=== PATIENT | female | born 1980 | race Caucasian/White ===

== ENCOUNTER → 2018-06-14 13:38 | Outpatient (CLI) | payer OTHER, SELFPAY ==
[2018-06-14 14:58] LABS: Absolute Lymphocyte Count 2.45 X10^3/ul (0.83-4.51); Absolute Neutrophil Count 5.7 X10^3/uL (2.0-7.7); Basophil# 0.04 X10^3/uL; Basophil% 0.4 % (0-1); Eosinophil# 0.18 X10^3/uL; Hematocrit 39.7 % (37-47); Hemoglobin 12.6 g/dl (12.0-15.0); Lymphocyte # 2.45 X10^3/ul (4.0); Lymphocyte % 27.3 % (19-41); Mean Corp Hgb Conc 31.7 g/gl (32-36); Mean Corpuscular Hgb 27.8 pg (27.0-32.0); Mean Corpuscular Volume 87.6 fL (81-99); Mean Platelet Vol. 9.3 fl (6.2-12.0); Monocyte# 0.61 X10^3/uL; Monocyte% 6.8 % (0-10); Neutrophil # 5.66 X10^3/uL (2.7-7.7); Neutrophil % 63.3 % (47-70); Platelet Count 276 K/mm3 (150-450); RBC Distribution Width CV 13.9 % (11.6-14.6); RBC Distribution Width SD 44.3 fl (35.1-43.9); Red Blood Count 4.53 M/mm3 (4.2-5.4)
[2018-06-14 15:00] LABS: POSITIVE COUNT NO; POSITIVE DIFFERENTIAL NO; POSITIVE MORPHOLOGY NO
== END ==
PROVIDERS: Family Provider Family Medicine; PCP Family Medicine; Visit Provider Family Medicine
DX: N92.0 Excessive and frequent menstruation with regular cycle (principal)
CPT/HCPCS: 36415; 85025

== ENCOUNTER 2018-06-14 21:51 | Observation (INO) | payer OTHER, SELFPAY ==
[2018-06-14 21:52] VITALS: BP 165/94; PULSE 113; RESP 15; TEMP 37.6; O2SAT 99; BMI 40.4
--- NOTE | 2018-06-14 22:12 | EKG12_ITS ---
Test Reason : ALLERGIC REACTION Blood Pressure : / mmHG Vent. Rate : 110 BPM Atrial Rate : 110 BPM P-R Int : 164 ms QRS Dur : 080 ms QT Int : 328 ms P-R-T Axes : 057 020 067 degrees QTc Int : 443 ms Sinus tachycardia Otherwise normal ECG Confirmed by JASSON SCOTT, ASTON ([id number]), photograph editor COBY GUERRERO ([id number]) on 06/16/2018 3:16:46 PM Referred By: DR HOLBROOK Confirmed By:ASTON SPAULDING MD
--- NOTE | 2018-06-14 22:20 | RAD_ITS ---
STUDY: X-RAY CHEST REASON FOR EXAM: Female, 38 years old. Allergic reaction, SOB. TECHNIQUE: Portable chest. COMPARISON: 03/29/2014. FINDINGS: The lungs are clear and expanded. There is no demonstrated pleural abnormality. Normal size heart. Normal mediastinum and laith. Normal visualized pulmonary arteries. Normal visualized aortic arch and descending thoracic aorta. Normal visualized thoracic spine. Normal visualized ribs, clavicles, and shoulders. There is no demonstrated abnormality of the visualized soft tissue structures of the upper abdomen. RAD/Chest 1 View (Portable) IMPRESSION: Normal x-ray examination of the chest. Electronically Signed: Reema Quintana MD at 22:39 EST Tel , Service support ,
--- NOTE | 2018-06-14 22:24 | ED.RN ---
NO OLD EKGS IN MUSE
[2018-06-14] MEDS: 0.9% Normal Saline 1,000 ML 250 ML IV (22:25)
[2018-06-14] MEDS: Acetaminophen 325 MG Tablet 650 MG PO (22:29)
[2018-06-14 22:30] VITALS: TEMP 39.1
[2018-06-14 22:33] LABS: Absolute Lymphocyte Count 0.25 X10^3/ul (0.83-4.51); Absolute Neutrophil Count 8.7 X10^3/uL (2.0-7.7); Basophil# 0.01 X10^3/uL; Basophil% 0.1 % (0-1); Eosinophil# 0.11 X10^3/uL; Eosinophils% 1.2 % (0-5); Hematocrit 38.6 % (37-47); Hemoglobin 12.9 g/dl (12.0-15.0); Lymphocyte # 0.25 X10^3/ul (4.0); Lymphocyte % 2.6 % (19-41); Mean Corp Hgb Conc 33.4 g/gl (32-36); Mean Corpuscular Hgb 28.9 pg (27.0-32.0); Mean Corpuscular Volume 86.4 fL (81-99); Mean Platelet Vol. 8.8 fl (6.2-12.0); Monocyte# 0.42 X10^3/uL; Monocyte% 4.4 % (0-10); Neutrophil % 91.5 % (47-70); Platelet Count 236 K/mm3 (150-450); RBC Distribution Width CV 13.9 % (11.6-14.6); RBC Distribution Width SD 42.6 fl (35.1-43.9); Red Blood Count 4.47 M/mm3 (4.2-5.4); White Blood Count 9.5 K/mm3 (4.4-11.0)
[2018-06-14 22:35] LABS: Differential Indicated SCAN CRITERIA MET; POSITIVE COUNT NO; POSITIVE DIFFERENTIAL YES; POSITIVE MORPHOLOGY NO
[2018-06-14] MEDS: Ciprofloxacin 400 MG/200 ML BAG 200 MG IV (22:40)
[2018-06-14 22:41] VITALS: PULSE 108; RESP 26; O2SAT 97
[2018-06-14 22:41] LABS: Partial Thromboplast Time 26.6 Seconds (24.1-36.2); Prothrombin Time (Protime)PT. 12.9 SECONDS (11.7-14.9)
[2018-06-14 22:45] VITALS: O2SAT 97
[2018-06-14 22:50] LABS: ALB/GLOB Ratio 1.2 RATIO (0.9-2.4); AST(SGOT) 18 U/L (15-37); Alanine Aminotransfer ALT/SGPT 31 U/L (13-56); Albumin, Serum 3.7 g/dL (3.2-5.0); Alkaline Phosphatase 50 U/L (45-117); Anion Gap 6 (5-15); BUN 10 mg/dL (7-18); BUN/Creat Ratio 11.5 RATIO (10-20); Chloride 106 mmol/L (98-107); Creatinine, Serum 0.87 mg/dL (0.55-1.02); EST Glomerular Filtration Rate 77 mL/min (>60); Est Glom Filt Rate - Afr Amer 94 mL/min (>60); Estimated Creatinine Clearance 97.99 ml/min; Globulin 3.2 g/dL (2.2-4.2); Glucose 102 mg/dL (74-106); Potassium 3.7 mmol/L (3.5-5.1); Protein, Total 6.9 g/dL (6.4-8.2); Sodium Level 139 mmol/L (136-145)
[2018-06-14 22:57] LABS: Bacteria 0 SEEN /hpf (None Seen); Mucous, Urine 0 SEEN /hpf (<or=2+); Red Blood Cells-Urine 0 SEEN /hpf (0-5); White Blood Cells 0 SEEN /hpf (0-5)
[2018-06-14 22:59] LABS: Differential Comment SCANNED
[2018-06-14 23:06] LABS: Color, Urine Yellow (Yellow); Glucose, Dipstick Normal (Normal); Ketone-Dipstick Negative (Negative); Leukocyte Esterase-Dipstick Negative /ul (Negative); Nitrite-Dipstick Negative (Negative); Occult Blood-Urine 50 /ul (Negative); Protein-Dipstick Negative (Negative); Specific Gravity, Urine 1.015 (1.002-1.030); Urine Bilirubin Dipstick Negative (Negative); Urine Clarity Clear (Clear); Urine Urobilinogen Normal (Normal)
[2018-06-14 23:16] LABS: Squamous Epithelial Cells - UA 0-5 SEEN /hpf (5-10)
[2018-06-14 23:54] LABS: Lactic Acid 1.6 mmol/L (0.4-2.0)
[2018-06-14 23:59] VITALS: BP 136/54; PULSE 131; RESP 26; O2SAT 96
[2018-06-15] VITALS (11 sets, daily range): BP systolic 103–138; BP diastolic 63–75; PULSE 70–124; RESP 16–29; TEMP 36.6–38.9; O2SAT 96–99; BMI 41.6
--- NOTE | 2018-06-15 00:09 | ED.DCSUM_ITS ---
- ER Visit Summary Date of Service: 06/15/18 Chief Complaint: Allergic reaction to Bactrim History of Present Illness: The patient is a 38 F who was seen by her doctor today and treated with Bactrim for UTI. She presents with fever, chills. She states the abdominal pain started shortly after taking the Bactrim. She does complain of shortness of breath but denies cough. She denies headache, photophobia, neck pain or neck stiffness. She believes she has a rash. She also complains of generalized weakness. She does report aching all over. She denies rhinorrhea, congestion or postnasal drainage. She denies sore throat, ear pain or decreased hearing. There is no significant past medical history. She is status post cholecystectomy. Physical Examination: Vital signs noted and remarkable for a blood pressure 155/94 temperature 102.3 heart rate of 113 and respirations 25. Pulse ox 90%. She appears ill. She is flushed. She is very hot to touch. She is not alert but is oriented. Nares patent without discharge. Uvula midline. No erythema or exudate of posterior pharynx. Neck supple. TMs are normal. Heart is rapid and regular without murmur, gallop or rub. Lungs are clear to auscultation with fair movement of air bilaterally. Abdomen minimally tender. There is no CVA tenderness noted. There is a small rash noted left lower quadrant of the abdominal wall. Patient is alert and oriented ?3. Motor is 5 over 5. Sensory is intact. DTRs are symmetric with no clonus or Babinski sign. Cranial 2 through 12 are intact. Cerebellar testing is normal. Patient appears flushed. There is no evidence of cellulitis or abscess. Test Results: White count is 9.5 thousand with 92 segs. Basic metabolic panel is unremarkable. Hepatic profile is unremarkable. Coags are normal. Urine is normal. Chest x-ray was obtained because she was tachypneic and is normal. Emergency Department Course and Treatment: Sepsis protocol was initiated. She received ciprofloxacin because she reports being diagnosed with UTI. Since there is a past history of staph infection/MRSA and there is no evidence of pneumonia or urinary tract infection will also treat with 50 mg/kg of vancomycin. Treatment Plan: IV antibiotics, monitoring in the hospital. Disposition: [facility] Impression: SIRS This note was generated with [employer] ([employer]) dictation software. It may contain incorrect words, spelling, and punctuation that were not noted in review of the chart prior to signing ED Disposition - Plan for ED Patient: Chief Complaint: Allergic Reaction Referrals: Radha Ramon DO [Primary Care Provider] -
--- NOTE | 2018-06-15 00:25 | PCM.HP.STD ---
Problem List (1) SIRS (systemic inflammatory response syndrome) Status: Acute (2) Allergic reaction to Bactrim Status: Acute History of Present Illness Date of Admission: 06/15/18 Chief Complaint: High fever with flushing and abdominal pain The patient is a 38 year old F with history of RA, not on medication came to ER after she had fever with chills, mild abdominal discomfort after she took Bactrim. Prior to that, she complained of burning micturition since Wednesday and she saw her PCP and prescribed Bactrim after possible urine dip test. She took first dose and started feeling fever, chills, shaking, flushing of the face, lethargic and somnolent. She had cough and cold about 2 weeks ago. She denies any current history of UTI and has not taken antibiotic recently.] In the ED, vitals shows 102.3 Fahrenheit, heart rate 130/min, tachypnea RR 26/min with no hypoxia. Empirically, she was given vancomycin and Cipro in ER. She has mild abdominal discomfort, predominantly lower quadrants denies change in recent bowel habit including diarrhea, constipation or GI bleed. Patient had mild nausea but denies vomiting. Past Medical History Allergies cephalexin monohydrate [From Keflex] Allergy (Verified 06/14/18 21:57) Other metronidazole [From Flagyl] Allergy (Verified 06/14/18 21:57) Other Home Medications: Ambulatory Orders Medication Instructions Recorded NK 06/14/18 Smoking Status: Never smoker - *Family History Paternal History Items: No pertinent history Review of Systems Constitutional: Reports: Chills, Fever, Malaise, Weakness, Fatigue HEENT: Denies: Head Aches, Sinus Congestion, Sinus Drainage Cardiovascular: Denies: Chest Pain, Palpitations Respiratory: Reports: Shortness of Breath. Denies: Cough, Sputum production Gastrointestinal: Reports: Nausea. Denies: Abdominal Pain, Vomiting Genitourinary: Reports: Dysuria Musculoskeletal: Reports: Joint Pain. Denies: Joint Tenderness Skin: Reports: Rash. Denies: Wounds Neurological: Denies: Numbness, Tingling, Focal weakness Psychiatric: Denies: Anxiety, Depression, Homicidal Ideations, Suicidal Ideations Hematologic/ Lymphatic: Denies: Easy Bruising, Easy Bleeding VTE Information - Inpt Only VTE Present on Admission: No VTE Mechan Device Prophylaxis: SCD's, None VTE Pharm Prophylaxis ordered?: Yes Patient Problems: Active and Suspected Problems SIRS (systemic inflammatory response syndrome) (Acute) Allergic reaction to Bactrim (Acute) - Physical Exam General: Oriented x3, Cooperative, Lethargic HEENT: Atraumatic, PERRLA, EOMI, Normocephalic Oral: Dry Mucosa Neck: Supple, No JVD, Negative Carotid Bruits, Negative Hepatojugular Reflux Lungs: Clear to auscultation, Normal air movement, No rhonchi, No wheeze Cardiovascular: Regular Rhythm, Normal S1, Normal S2, No murmurs, Tachycardic Abdomen: Bowel Sounds Present, Soft, Non-Distended, Hypoactive Bowel Sounds, Tender - Mild tenderness present in lower quadrants, right lower and left lower quadrants. No rebound tenderness or guarding/rigidity Extremities: No edema, Capillary Refill Less than 3 Seconds Skin: No rashes, No breakdown Musculoskeletal: No Tenderness to Palpation of Joints or Extremities, Arthritic Changes Neurological: Cranial nerves II-XII grossly intact, Deep Tendon Reflexes 2+/4 and Symmetrical, Neuro grossly intact Psych/Mental Status: Normal Affect, Appropriate Vital Signs Temp Pulse Resp BP Pulse Ox 102.3 F H 131 H 26 H 136/54 H 96 06/14/18 22:30 06/14/18 23:59 06/14/18 23:59 06/14/18 23:59 06/14/18 23:59 Oxygen Delivery Method Room Air Weight: 290 lb Body Mass Index (BMI) 40.4 Laboratory Tests Past 24 Hrs 06/14/18 06/14/18 06/14/18 22:20 22:20 22:20 WBC 9.5 RBC 4.47 Hgb 12.9 Hct 38.6 MCV 86.4 MCH 28.9 MCHC 33.4 RDW 13.9 RDW Differential 42.6 Plt Count 236 MPV 8.8 Immature Gran % (Auto) 0.200 Neut % (Auto) 91.5 H Lymph % (Auto) 2.6 L [place] % (Auto) 4.4 Eos % (Auto) 1.2 Baso % (Auto) 0.1 Absolute Neuts (auto) 8.7 H Absolute Lymphs (auto) 0.25 L Total Counted Not Reportable Differential Comment SCANNED PT 12.9 INR 1.0 APTT 26.6 Sodium 139 Potassium 3.7 Chloride 106 Carbon Dioxide 27.0 Anion Gap 6 BUN 10 Creatinine 0.87 Estim Creat Clear Calc 97.99 Est GFR (MDRD) Af Amer 94 Est GFR (MDRD) Non-Af 77 BUN/Creatinine Ratio 11.5 Glucose 102 Lactic Acid Calcium 9.0 Total Bilirubin 0.40 AST 18 ALT 31 Alkaline Phosphatase 50 Total Protein 6.9 Albumin 3.7 Globulin 3.2 Albumin/Globulin Ratio 1.2 Urine Color Urine Clarity Urine pH Ur Specific [place] Urine Protein Urine Glucose (UA) Urine Ketones Urine Occult Blood Urine Nitrite Urine Bilirubin Urine Urobilinogen Ur Leukocyte Esterase Urine RBC Urine WBC Ur Squamous Epith Cells Urine Bacteria Urine Mucus 06/14/18 06/14/18 06/14/18 22:20 22:50 23:08 WBC RBC Hgb Hct MCV MCH MCHC RDW RDW Differential Plt Count MPV Immature Gran % (Auto) Neut % (Auto) Lymph % (Auto) [place] % (Auto) Eos % (Auto) Baso % (Auto) Absolute Neuts (auto) Absolute Lymphs (auto) Total Counted Differential Comment PT INR APTT Sodium Potassium Chloride Carbon Dioxide Anion Gap BUN Creatinine Estim Creat Clear Calc Est GFR (MDRD) Af Amer Est GFR (MDRD) Non-Af BUN/Creatinine Ratio Glucose Lactic Acid Cancelled 1.6 Calcium Total Bilirubin AST ALT Alkaline Phosphatase Total Protein Albumin Globulin Albumin/Globulin Ratio Urine Color Yellow Urine Clarity Clear Urine pH 7.0 Ur Specific [place] 1.015 Urine Protein Negative Urine Glucose (UA) Normal Urine Ketones Negative Urine Occult Blood 50 H Urine Nitrite Negative Urine Bilirubin Negative Urine Urobilinogen Normal Ur Leukocyte Esterase Negative Urine RBC 0 SEEN Urine WBC 0 SEEN Ur Squamous Epith Cells 0-5 SEEN Urine Bacteria 0 SEEN Urine Mucus 0 SEEN Assessment/Plan All Active Problems SIRS (systemic inflammatory response syndrome) (Acute) Allergic reaction to Bactrim (Acute) The patient is a 38 year old F with history of RA, not on medication came to ER after she had fever with chills, mild abdominal discomfort after she took Bactrim. Prior to that, she complained of burning micturition since Wednesday and she saw her PCP and prescribed Bactrim after possible urine dip test. She took first dose and started feeling fever, chills, shaking, flushing of the face, lethargic and somnolent. She had cough and cold about 2 weeks ago. She denies any current history of UTI and has not taken antibiotic recently.] In the ED, vitals shows fever 102.3 Fahrenheit, heart rate 130/min, tachypnea RR 26/min with no hypoxia. Empirically, she was given vancomycin and Cipro in ER. UA and chest x-ray are negative. No leukocytosis. She has mild abdominal discomfort, predominantly lower quadrants denies change in recent bowel habit including diarrhea, constipation or GI bleed. Patient had mild nausea but denies vomiting. 1. SIRS ( fever 102.3 Fahrenheit, heart rate 130/min, tachypnea RR 26/min with no hypoxia), no obvious source but possible abdominal infection or non-infection secondary to Bactrim reaction: [facility] abdomen with oral and IV contrast ordered. Patient did not had history of allergic reaction to contrast in the past. Continue Cipro 400 mg IV every 12 hourly. ID consult. Stool for occult blood, WBC and enteric bacteriology panel ordered. MRSA nasal screen ordered. 2. Possible allergic reaction to Bactrim with flushing and fever: IV Solu-Medrol 60 mg 1 dose given. Started on Benadryl and Pepcid. 3. RA not on medication: In the past she said she could not tolerate methotrexate. Currently controlled. Outpatient workup and management. DVT prophylaxis: Low risk, SCDs ordered. Early ambulation encouraged Code Visit OBSV E&M: 29880 Initial observation care L3
--- NOTE | 2018-06-15 01:10 | CT_ITS ---
STUDY: CT ABDOMEN WITH CONTRAST REASON FOR EXAM: Female, 38 years old. Abdominal pain RADIATION DOSAGE (If Supplied By Facility): CTDIvol = ( 27.31 ) mGy, DLP = ( 2861.00 ) mGycm TECHNIQUE: Transaxial images were obtained post I.V. administration of 100 ml of Isovue 300 contrast, and oral contrast. Sagittal and coronal images were reconstructed. Individualized dose optimization techniques were used for this CT. COMPARISON: 06/13/2012 FINDINGS: The visualized lung bases are unremarkable. The visualized portions of the heart are within normal limits. Normal liver. There has been a cholecystectomy. Normal spleen. Normal pancreas. Normal bilateral adrenal glands. Normal right kidney. Normal left kidney. Normal visualized stomach. Normal small intestine. Normal colon. The appendix is visualized and appears normal. Normal abdominal aorta. Normal inferior vena cava. Normal retroperitoneum. Normal abdominal wall. Normal osseous structures. CT/Abdomen/Pelvis WITH Contrast IMPRESSION: There is been a cholecystectomy. Examination is otherwise unremarkable. Electronically Signed: Surjit Martinez MD at 7:24 EST , Service support ,
[2018-06-15 01:33] LABS: Erythrocyte Sedimentation Rate 19 mm/hr (0-20)
[2018-06-15] MEDS: MethylPREDNISolone 125 MG/2 ML Vial 60 MG IV (01:49)
[2018-06-15] MEDS: 0.9% NaCl Peripheral Flush Adult/Peds IV (01:52)
[2018-06-15 02:24] LABS: CRP 6.16 mg/L (0.0-3.0)
[2018-06-15 02:57] LABS: M R Staph aureus DNA By PCR Negative (Negative); Probe Check PASS; Specimen Processing Control PASS
[2018-06-15] MEDS: 0.9% Normal Saline 1,000 ML 500 ML IV (02:58)
[2018-06-15] MEDS: 0.9% Normal Saline 1,000 ML 150 ML IV ×2 (04:36→14:43)
[2018-06-15 06:10] LABS: Hematocrit 41.4 % (37-47); Hemoglobin 13.2 g/dl (12.0-15.0); Mean Corp Hgb Conc 31.9 g/gl (32-36); Mean Corpuscular Hgb 29.1 pg (27.0-32.0); Mean Corpuscular Volume 91.2 fL (81-99); Mean Platelet Vol. 9.4 fl (6.2-12.0); Platelet Count 240 K/mm3 (150-450); RBC Distribution Width CV 14.4 % (11.6-14.6); RBC Distribution Width SD 47.7 fl (35.1-43.9); Red Blood Count 4.54 M/mm3 (4.2-5.4); White Blood Count 13.7 K/mm3 (4.4-11.0)
[2018-06-15 06:13] LABS: Differential Indicated MANUAL DIFF; POSITIVE COUNT YES; POSITIVE DIFFERENTIAL NO; POSITIVE MORPHOLOGY YES
[2018-06-15 07:25] LABS: Lymphocyte 1 % (19-41); Monocyte 1 % (0-10); Neutrophil-Segmented 98 % (47-70); Total Cells Counted 100 (MANUAL DIFF)
[2018-06-15 07:26] LABS: Platelet Estimate ADEQUATE (ADEQ); Red Cell Morphology NORM C+C NORMAL (NORM C&C)
[2018-06-15 07:27] LABS: Absolute Lymphocyte Count 0.14 X10^3/ul (0.83-4.51); Absolute Neutrophil Count 13.4 X10^3/uL (2.0-7.7)
[2018-06-15] MEDS: Acetaminophen 325 MG Tablet 650 MG PO ×2 (09:42→21:09)
--- NOTE | 2018-06-15 12:39 | PCM.HP.ID ---
Problem List (1) SIRS (systemic inflammatory response syndrome) Status: Acute Reason for Consult: fever Consulted by: Dr. Mathews History of Present Illness: The patient is a 38 year old F with RA, not on immunosuppression, who presented with sudden fever, abd pain, not feeling well. Had several days of dysuria and suprapubic tenderness, saw PCP yesterday, had urine dip done, given rx for bactrim. 2 hours after dose, developed above symptoms with diffuse abd cramping. Doesn't know if she ever took bactrim before. last uti was 15 years ago or so. Came to ED, given iv vanc and cipro. Fever to 102.3. Feeling better this AM, abd pain improved. No rash or itching. Full ROS performed and neg except as noted above. - Medical History Allergies/Adverse Reactions: Allergies cephalexin monohydrate [From Keflex] Allergy (Verified 06/14/18 21:57) Other metronidazole [From Flagyl] Allergy (Verified 06/14/18 21:57) Other sulfamethoxazole [From Bactrim] Allergy (Verified 06/15/18 00:58) Upset Stomach trimethoprim [From Bactrim] Allergy (Verified 06/15/18 00:58) Upset Stomach Home Medications: Ambulatory Orders Medication Instructions Recorded NK 06/14/18 - Social History Tobacco Use: non-smoker Vital Signs Temp Pulse Resp BP Pulse Ox 99.5 F H 84 18 126/73 H 96 06/15/18 08:02 06/15/18 08:02 06/15/18 08:02 06/15/18 08:02 06/15/18 08:02 Oxygen Delivery Method Room Air Weight: 135.4 kg Body Mass Index (BMI) 41.6 Laboratory Tests Past 24 Hrs 06/14/18 06/14/18 06/14/18 22:20 22:20 22:20 WBC 9.5 RBC 4.47 Hgb 12.9 Hct 38.6 MCV 86.4 MCH 28.9 MCHC 33.4 RDW 13.9 RDW Differential 42.6 Plt Count 236 MPV 8.8 Immature Gran % (Auto) 0.200 Neut % (Auto) 91.5 H Lymph % (Auto) 2.6 L [place] % (Auto) 4.4 Eos % (Auto) 1.2 Baso % (Auto) 0.1 Absolute Neuts (auto) 8.7 H Absolute Lymphs (auto) 0.25 L Total Counted Not Reportable Neutrophils % (Manual) Lymphocytes % (Manual) Monocytes % (Manual) Differential Comment SCANNED Diff Path Review Platelet Estimate RBC Morphology ESR PT 12.9 INR 1.0 APTT 26.6 Sodium 139 Potassium 3.7 Chloride 106 Carbon Dioxide 27.0 Anion Gap 6 BUN 10 Creatinine 0.87 Estim Creat Clear Calc 97.99 Est GFR (MDRD) Af Amer 94 Est GFR (MDRD) Non-Af 77 BUN/Creatinine Ratio 11.5 Glucose 102 Lactic Acid Calcium 9.0 Total Bilirubin 0.40 AST 18 ALT 31 Alkaline Phosphatase 50 C-React Prot Ext Range Total Protein 6.9 Albumin 3.7 Globulin 3.2 Albumin/Globulin Ratio 1.2 Urine Color Urine Clarity Urine pH Ur Specific [place] Urine Protein Urine Glucose (UA) Urine Ketones Urine Occult Blood Urine Nitrite Urine Bilirubin Urine Urobilinogen Ur Leukocyte Esterase Urine RBC Urine WBC Ur Squamous Epith Cells Urine Bacteria Urine Mucus MRSA (PCR) 06/14/18 06/14/18 06/14/18 22:20 22:20 22:20 WBC RBC Hgb Hct MCV MCH MCHC RDW RDW Differential Plt Count MPV Immature Gran % (Auto) Neut % (Auto) Lymph % (Auto) [place] % (Auto) Eos % (Auto) Baso % (Auto) Absolute Neuts (auto) Absolute Lymphs (auto) Total Counted Neutrophils % (Manual) Lymphocytes % (Manual) Monocytes % (Manual) Differential Comment Diff Path Review Platelet Estimate RBC Morphology ESR 19 PT INR APTT Sodium Potassium Chloride Carbon Dioxide Anion Gap BUN Creatinine Estim Creat Clear Calc Est GFR (MDRD) Af Amer Est GFR (MDRD) Non-Af BUN/Creatinine Ratio Glucose Lactic Acid Cancelled Calcium Total Bilirubin AST ALT Alkaline Phosphatase C-React Prot Ext Range 6.16 H Total Protein Albumin Globulin Albumin/Globulin Ratio Urine Color Urine Clarity Urine pH Ur Specific [place] Urine Protein Urine Glucose (UA) Urine Ketones Urine Occult Blood Urine Nitrite Urine Bilirubin Urine Urobilinogen Ur Leukocyte Esterase Urine RBC Urine WBC Ur Squamous Epith Cells Urine Bacteria Urine Mucus MRSA (PCR) 06/14/18 06/14/18 06/15/18 22:50 23:08 01:15 WBC RBC Hgb Hct MCV MCH MCHC RDW RDW Differential Plt Count MPV Immature Gran % (Auto) Neut % (Auto) Lymph % (Auto) [place] % (Auto) Eos % (Auto) Baso % (Auto) Absolute Neuts (auto) Absolute Lymphs (auto) Total Counted Neutrophils % (Manual) Lymphocytes % (Manual) Monocytes % (Manual) Differential Comment Diff Path Review Platelet Estimate RBC Morphology ESR PT INR APTT Sodium Potassium Chloride Carbon Dioxide Anion Gap BUN Creatinine Estim Creat Clear Calc Est GFR (MDRD) Af Amer Est GFR (MDRD) Non-Af BUN/Creatinine Ratio Glucose Lactic Acid 1.6 Calcium Total Bilirubin AST ALT Alkaline Phosphatase C-React Prot Ext Range Total Protein Albumin Globulin Albumin/Globulin Ratio Urine Color Yellow Urine Clarity Clear Urine pH 7.0 Ur Specific [place] 1.015 Urine Protein Negative Urine Glucose (UA) Normal Urine Ketones Negative Urine Occult Blood 50 H Urine Nitrite Negative Urine Bilirubin Negative Urine Urobilinogen Normal Ur Leukocyte Esterase Negative Urine RBC 0 SEEN Urine WBC 0 SEEN Ur Squamous Epith Cells 0-5 SEEN Urine Bacteria 0 SEEN Urine Mucus 0 SEEN MRSA (PCR) Negative 06/15/18 05:34 WBC 13.7 H RBC 4.54 Hgb 13.2 Hct 41.4 MCV 91.2 MCH 29.1 MCHC 31.9 L RDW 14.4 RDW Differential 47.7 H Plt Count 240 MPV 9.4 Immature Gran % (Auto) Neut % (Auto) Not Reportable Lymph % (Auto) [place] % (Auto) Eos % (Auto) Baso % (Auto) Absolute Neuts (auto) 13.4 H Absolute Lymphs (auto) 0.14 L Total Counted 100 Neutrophils % (Manual) 98 H Lymphocytes % (Manual) 1 L Monocytes % (Manual) 1 Differential Comment Diff Path Review May foll Platelet Estimate ADEQUATE RBC Morphology NORM C+C ESR PT INR APTT Sodium Potassium Chloride Carbon Dioxide Anion Gap BUN Creatinine Estim Creat Clear Calc Est GFR (MDRD) Af Amer Est GFR (MDRD) Non-Af BUN/Creatinine Ratio Glucose Lactic Acid Calcium Total Bilirubin AST ALT Alkaline Phosphatase C-React Prot Ext Range Total Protein Albumin Globulin Albumin/Globulin Ratio Urine Color Urine Clarity Urine pH Ur Specific [place] Urine Protein Urine Glucose (UA) Urine Ketones Urine Occult Blood Urine Nitrite Urine Bilirubin Urine Urobilinogen Ur Leukocyte Esterase Urine RBC Urine WBC Ur Squamous Epith Cells Urine Bacteria Urine Mucus MRSA (PCR) - Other Studies Radiology: [] reviewed Other Studies: [] Route of nutrition/ use of supplements: [] Nutritional Intake: [] IV Site: [] Arellano Catheter: [] - Physical Exam General: Alert, Oriented x3, Cooperative, No apparent distress HEENT: Atraumatic, PERRLA, EOMI Neck: Supple, No Nodes Lungs: Clear to auscultation, Normal air movement Cardiovascular: Regular rate, Regular Rhythm, No murmurs Abdomen: Soft, Non Tender, Non-Distended Extremities: No edema Skin: No rashes IV Site: Peripheral, without redness Musculoskeletal: No Tenderness to Palpation of Joints or Extremities Neurological: Cranial nerves II-XII grossly intact - Assessment/Plan Antibiotics: [] Assessment/Plan: [] Active and Suspected Problems SIRS (systemic inflammatory response syndrome) (Acute) Allergic reaction to Bactrim (Acute) SIRS - seems consistent with allergic reaction to bactrim complicated uti - UA with 0 wbc, ucx here pending. Had dysuria and suprapubic pain. Cover with po cipro, plan on 5-7 day course. Will follow, thank you, d/w primary team
[2018-06-15 14:39] LABS: Pathologist Review Reviewed
--- NOTE | 2018-06-15 18:09 | PCM.HOSP.N ---
Hospitalist Note Patient was seen briefly today, I also talked with infectious diseases about her care. Factious diseases feels that the patient has an acute cystitis, according to infectious disease notes, they feel that the patient's possible allergic reaction to Bactrim caused her SIRS. Infectious diseases recommended the patient be kept on Cipro, I advanced the patient's diet today to a regular diet, her CAT scan of the abdomen and pelvis did not show any indication for abscess or infection. Chest x-ray was unremarkable on admission. Patient's elevated white blood cell count may be secondary to the administration of IV corticosteroids yesterday.
[2018-06-15] MEDS: Ciprofloxacin 500 MG Tablet PO (21:09)
[2018-06-15] MEDS: 0.9% Normal Saline 1,000 ML 75 ML IV (21:11)
[2018-06-16 04:00] VITALS: BP 116/42; PULSE 76; RESP 16; TEMP 36.7; O2SAT 99
[2018-06-16 06:09] LABS: Absolute Lymphocyte Count 1.45 X10^3/ul (0.83-4.51); Absolute Neutrophil Count 4.8 X10^3/uL (2.0-7.7); Basophil# 0.02 X10^3/uL; Basophil% 0.3 % (0-1); Eosinophil# 0.47 X10^3/uL; Eosinophils% 6.4 % (0-5); Hematocrit 34.5 % (37-47); Hemoglobin 11.1 g/dl (12.0-15.0); Lymphocyte # 1.45 X10^3/ul (4.0); Lymphocyte % 19.8 % (19-41); Mean Corp Hgb Conc 32.2 g/gl (32-36); Mean Corpuscular Hgb 28.5 pg (27.0-32.0); Mean Corpuscular Volume 88.7 fL (81-99); Monocyte% 8.2 % (0-10); Neutrophil # 4.77 X10^3/uL (2.7-7.7); Platelet Count 202 K/mm3 (150-450); RBC Distribution Width SD 44.4 fl (35.1-43.9); Red Blood Count 3.89 M/mm3 (4.2-5.4); White Blood Count 7.3 K/mm3 (4.4-11.0)
[2018-06-16 06:33] LABS: POSITIVE COUNT NO; POSITIVE DIFFERENTIAL NO; POSITIVE MORPHOLOGY NO
--- NOTE | 2018-06-16 08:47 | DCINST_ITS ---
- Discharge Diagnoses Current Active Problems: Current Active and Chronic Problems SIRS (systemic inflammatory response syndrome) (Acute) Allergic reaction to Bactrim (Acute) You will use the following diet at home:: No restrictions Your food should be the consistency of: Regular Your liquids should be the consistency of: Regular/Thin Return to work on:: 06/20/18 May resume sexual activity in: No Restrictions Call your doctor if you observe: Fever of 101 or Higher, Inability to urinate, Shortness of breath, - - trouble swallowing. worsening rash. Allergies/Adverse Reactions: Allergies cephalexin monohydrate [From Keflex] Allergy (Verified 06/14/18 21:57) Other metronidazole [From Flagyl] Allergy (Verified 06/14/18 21:57) Other sulfamethoxazole [From Bactrim] Allergy (Verified 06/15/18 00:58) Upset Stomach trimethoprim [From Bactrim] Allergy (Verified 06/15/18 00:58) Upset Stomach Medications to take at Discharge Ciprofloxacin [Cipro] 500 mg PO BID #10 tablet 06/16/18 The following prescriptions were given: Ciprofloxacin [Cipro] 500 mg PO BID #10 tablet Primary Care Physician: Radha Ramon DO [Primary Care Provider] - Within 2 Weeks Test Results: Test results from this visit will be discussed in further detail at your follow- up appointment, if applicable. Proposed Discharge Date: 06/16/18
--- NOTE | 2018-06-16 08:47 | PCM.WORK.EX ---
Work/School Excuse Work/School Excuse for:: Patient Please excuse this person from:: Work From: 06/15/18 through: 06/20/18
--- NOTE | 2018-06-16 08:48 | PCM.DC.SUM ---
Discharge Date and Diagnosis - Problem List Patient Problems: Active and Suspected Problems SIRS (systemic inflammatory response syndrome) (Acute) Allergic reaction to Bactrim (Acute) Date of Admission: 06/15/18 Date of Discharge: 06/16/18 - Primary Discharge Diagnosis Active and Suspected Problems SIRS (systemic inflammatory response syndrome) (Acute) Allergic reaction to Bactrim (Acute) Hospital Course and Treatment Imaging Results: Clinical Impression(s) from Imaging Studies Chest X-Ray 06/14/18 22:20 IMPRESSION: Normal x-ray examination of the chest. Electronically Signed: Reema Quintana MD at 22:39 EST Tel , Service support , Abdomen/Pelvis CT 06/15/18 01:10 IMPRESSION: There is been a cholecystectomy. Examination is otherwise unremarkable. Electronically Signed: Surjit Martinez MD at 7:24 EST , Service support , Clarence Quezada MD. Infectious disease Operations: None Procedures: None Summary of Care Provided: The patient is a 38 year old F with high fever from home of 102.3 Fahrenheit. Patient also was tachycardic, with heart rate in the 130s and tachypneic with a respiratory rate of 26. Patient states that her symptoms began a couple hours after taking Bactrim. Patient was taking Bactrim for some mild urinary symptoms. Patient denies ever having had Bactrim before. Patient was diagnosed with systemic inflammatory response syndrome. To and patient did have cultures performed that were well as fecal leukocytes. It is feeling. From infectious disease, that this could been just a an acute allergic reaction. Patient did have some eosinophilia that developed but did not meet criteria for DRESS syndrome. Patient was told that this is most likely a drug reaction is really could been a something else, such as infection. Nonetheless, patient is recommended to not take any sulfa medications. Therefore, patient's systemic inflammatory response syndrome is likely due to an acute allergic reaction. She may benefit from seeing an milking machine mechanic given the now patient has 5 medication allergies. [] Patient Problems: Active and Suspected Problems SIRS (systemic inflammatory response syndrome) (Acute) Allergic reaction to Bactrim (Acute) - Physical Exam General: Alert, No apparent distress HEENT: Atraumatic, Normocephalic Oral: Moist Mucosa, No Gingival or Mucosal Lesions/ Ulcerations Neck: No Nodes, Thyroid Normal Size and Texture Lungs: Clear to auscultation, Normal air movement, No rhonchi, No wheeze Cardiovascular: Regular rate, Regular Rhythm, Normal S1, Normal S2, No murmurs Abdomen: Bowel Sounds Present, Soft, Non Tender, Non-Distended, No Hepato-splenomegaly Extremities: No edema, No Calf Tenderness Skin: No rashes Vital Signs Temp Pulse Resp BP Pulse Ox 36.7 C 76 16 116/42 L 99 06/16/18 04:00 06/16/18 04:00 06/16/18 04:00 06/16/18 04:00 06/16/18 04:00 Oxygen Delivery Method Room Air Weight: 135.4 kg Body Mass Index (BMI) 41.6 Intake and Output for Last 24 Hours 06/14/18 06/15/18 06/16/18 23:59 23:59 23:59 Intake Total 4443 / 4443 700 / 700 Output Total 1900 / 1900 Balance 2543 / 2543 700 / 700 Microbiology Past 72 Hours 06/15/18 16:46 Stool Lactoferrin - Final Stool 06/15/18 16:46 Stool Occult Blood (PAOLO) - Final Stool Laboratory Tests Past 24 Hrs 06/15/18 06/16/18 05:34 05:36 WBC 7.3 RBC 3.89 L Hgb 11.1 L Hct 34.5 L MCV 88.7 MCH 28.5 MCHC 32.2 RDW 14.0 RDW Differential 44.4 H Plt Count 202 MPV 9.0 Immature Gran % (Auto) 0.300 Neut % (Auto) 65.0 Lymph % (Auto) 19.8 [place] % (Auto) 8.2 Eos % (Auto) 6.4 H Baso % (Auto) 0.3 Absolute Neuts (auto) 4.8 Absolute Lymphs (auto) 1.45 Total Counted Not Reportable Diff Path Review Reviewed Discharge Diet: No Restrictions Return to work on:: 06/20/18 May resume sexual activity in: No Restrictions Call your doctor if you observe: Fever of 101 or Higher, Inability to urinate, Shortness of breath, - - trouble swallowing. worsening rash. Home Medications: Medications to take at Discharge Ciprofloxacin [Cipro] 500 mg PO BID #10 tablet 06/16/18 Following Prescrptions Were Given to Patient: Ciprofloxacin [Cipro] 500 mg PO BID #10 tablet Primary Care Physician: Radha Ramon DO [Primary Care Provider] - Within 2 Weeks Disposition: Home Minutes spent on discharge:: 32 Patient Condition:: Good Medical Necessity - Tobacco Use Smoking Status: Never smoker Meaningful Use Info Meaningful Use Diagnoses (Choose all that apply): None applicable Code Visit OBSV E&M: 80452 Observation care discharge
--- NOTE | 2018-06-16 08:52 | DS.PCM_ITS ---
Discharge Date and Diagnosis - Problem List Patient Problems: Active and Suspected Problems SIRS (systemic inflammatory response syndrome) (Acute) Allergic reaction to Bactrim (Acute) Date of Admission: 06/15/18 Date of Discharge: 06/16/18 - Primary Discharge Diagnosis Active and Suspected Problems SIRS (systemic inflammatory response syndrome) (Acute) Allergic reaction to Bactrim (Acute) Hospital Course and Treatment Imaging Results: Clinical Impression(s) from Imaging Studies Chest X-Ray 06/14/18 22:20 IMPRESSION: Normal x-ray examination of the chest. Electronically Signed: Reema Quintana MD at 22:39 EST Tel , Service support , Abdomen/Pelvis CT 06/15/18 01:10 IMPRESSION: There is been a cholecystectomy. Examination is otherwise unremarkable. Electronically Signed: Surjit Martinez MD at 7:24 EST , Service support , Clarence Quezada MD. Infectious disease Operations: None Procedures: None Summary of Care Provided: The patient is a 38 year old F with high fever from home of 102.3 Fahrenheit. Patient also was tachycardic, with heart rate in the 130s and tachypneic with a respiratory rate of 26. Patient states that her symptoms began a couple hours after taking Bactrim. Patient was taking Bactrim for some mild urinary symptoms. Patient denies ever having had Bactrim before. Patient was diagnosed with systemic inflammatory response syndrome. To and patient did have cultures performed that were well as fecal leukocytes. It is feeling. From infectious disease, that this could been just a an acute allergic reaction. Patient did have some eosinophilia that developed but did not meet criteria for DRESS syndrome. Patient was told that this is most likely a drug reaction is really could been a something else, such as infection. Nonetheless, patient is recommended to not take any sulfa medications. Therefore, patient's systemic inflammatory response syndrome is likely due to an acute allergic reaction. She may benefit from seeing an wire winding machine tender given the now patient has 5 medication allergies. [] Patient Problems: Active and Suspected Problems SIRS (systemic inflammatory response syndrome) (Acute) Allergic reaction to Bactrim (Acute) - Physical Exam General: Alert, No apparent distress HEENT: Atraumatic, Normocephalic Oral: Moist Mucosa, No Gingival or Mucosal Lesions/ Ulcerations Neck: No Nodes, Thyroid Normal Size and Texture Lungs: Clear to auscultation, Normal air movement, No rhonchi, No wheeze Cardiovascular: Regular rate, Regular Rhythm, Normal S1, Normal S2, No murmurs Abdomen: Bowel Sounds Present, Soft, Non Tender, Non-Distended, No Hepato- splenomegaly Extremities: No edema, No Calf Tenderness Skin: No rashes Vital Signs Temp Pulse Resp BP Pulse Ox 36.7 C 76 16 116/42 L 99 06/16/18 04:00 06/16/18 04:00 06/16/18 04:00 06/16/18 04:00 06/16/18 04:00 Oxygen Delivery Method Room Air Weight: 135.4 kg Body Mass Index (BMI) 41.6 Intake and Output for Last 24 Hours 06/14/18 06/15/18 06/16/18 23:59 23:59 23:59 Intake Total 4443 / 4443 700 / 700 Output Total 1900 / 1900 Balance 2543 / 2543 700 / 700 Microbiology Past 72 Hours 06/15/18 16:46 Stool Lactoferrin - Final Stool 06/15/18 16:46 Stool Occult Blood (PAOLO) - Final Stool Laboratory Tests Past 24 Hrs 06/15/18 06/16/18 05:34 05:36 WBC 7.3 RBC 3.89 L Hgb 11.1 L Hct 34.5 L MCV 88.7 MCH 28.5 MCHC 32.2 RDW 14.0 RDW Differential 44.4 H Plt Count 202 MPV 9.0 Immature Gran % (Auto) 0.300 Neut % (Auto) 65.0 Lymph % (Auto) 19.8 [place] % (Auto) 8.2 Eos % (Auto) 6.4 H Baso % (Auto) 0.3 Absolute Neuts (auto) 4.8 Absolute Lymphs (auto) 1.45 Total Counted Not Reportable Diff Path Review Reviewed Discharge Diet: No Restrictions Return to work on:: 06/20/18 May resume sexual activity in: No Restrictions Call your doctor if you observe: Fever of 101 or Higher, Inability to urinate, Shortness of breath, - - trouble swallowing. worsening rash. Home Medications: Medications to take at Discharge Ciprofloxacin [Cipro] 500 mg PO BID #10 tablet 06/16/18 Following Prescrptions Were Given to Patient: Ciprofloxacin [Cipro] 500 mg PO BID #10 tablet Primary Care Physician: Radha Ramon DO [Primary Care Provider] - Within 2 Weeks Disposition: Home Minutes spent on discharge:: 32 Patient Condition:: Good Medical Necessity - Tobacco Use Smoking Status: Never smoker Meaningful Use Info Meaningful Use Diagnoses (Choose all that apply): None applicable Code Visit OBSV E&M: 32193 Observation care discharge
[2018-06-16] MEDS: Ciprofloxacin 500 MG Tablet PO (09:19)
[2018-06-16 09:24] VITALS: BP 143/100; PULSE 74; RESP 16; TEMP 36.9; O2SAT 98
== END 2018-06-16 09:23 | disposition home or self-care (01) ==
LOC: ED 23:04 → MS3 06-15 00:20
PROVIDERS: Internal Medicine; Admitting Provider Internal Medicine; Emergency Provider Emergency Medicine; Family Provider Family Medicine; PCP Family Medicine
DX: R00.0 Tachycardia, unspecified (principal); R65.10 Systemic inflammatory response syndrome (SIRS) of non-infectious origin without acute organ dysfunction; T37.0X5A Adverse effect of sulfonamides, initial encounter; N39.0 Urinary tract infection, site not specified; M06.9 Rheumatoid arthritis, unspecified
CPT/HCPCS: 36415; 71045; 74177; 80053; 81001; 82274; 83605; 83630; 85025; 85610; 85652; 85730; 86140; 87040; 87086; 87506; 87641; 93005; 96361; 96365; 96366; 96367; 96375; 99218; 99285; J7030; Q9967; A4216; G0378; J0744; J3490

== ENCOUNTER → 2018-12-09 | Outpatient (CLI) | payer OTHER, SELFPAY ==
--- NOTE | 2018-12-09 08:49 | RAD_ITS ---
STUDY: X-RAY - LEFT FOOT CLINICAL: Female, 38 years old. Recent heel pain without trauma. TECHNIQUE: 3 view(s) of the foot. COMPARISON: None. FINDINGS: Osseous alignments are anatomic. There is no acute fracture lucency. There is no cortical step-off. There is no radiopaque soft tissue foreign body. There are well corticated, degenerative plantar and Achilles insertion site spurs involving the calcaneus. RAD/Foot min 3 Views IMPRESSION: No plain film evident acute osseous abnormality. No significant arthritic change. Degenerative calcaneal spurring. Electronically Signed: Jose Sultana MD at 13:04 EDT , Service support ,
--- NOTE | 2018-12-09 08:49 | RAD_ITS ---
STUDY: X-RAY - LEFT ANKLE REASON FOR EXAM: Female, 38 years old. Reason ankle swelling without trauma. TECHNIQUE: 3 view(s) of the ankle. COMPARISON: None. FINDINGS: Osseous alignments appear anatomic. There is no acute fracture lucency or cortical step-off. No significant plain film evident soft tissue swelling. No radiopaque soft tissue foreign body. Minimal multifocal osteoarthritis. Well-corticated, prominent degenerative plantar and Achilles insertion site spurs RAD/Ankle min 3 Views IMPRESSION: No radiographically evident acute osseous abnormality. Calcaneal degenerative spurs. Electronically Signed: Jose Sultana MD at 13:01 EDT , Service support ,
== END | disposition home or self-care (01) ==
LOC: HPRAD 08:41
PROVIDERS: Family Provider Family Medicine; PCP Family Medicine; Referring Provider Family Medicine; Visit Provider Family Medicine
DX: M25.572 Pain in left ankle and joints of left foot (principal); M79.672 Pain in left foot
CPT/HCPCS: 73610; 73630

== ENCOUNTER → 2018-12-27 | Outpatient (CLI) | payer OTHER, SELFPAY ==
--- NOTE | 2018-12-27 08:48 | VDLE_ITS ---
Reason For Study: Varicose veins RIGHT LEFT CFV is compressible, spontaneous, phasic, CFV is compressible, spontaneous, phasic, competent and demonstrates normal competent, and demonstrates normal augmentation. augmentation. FV is compressible, spontaneous, phasic, FV is compressible, spontaneous, phasic, competent and demonstrates normal competent and demonstrates normal augmentation. augmentation. POP V is compressible, spontaneous, phasic, POP V is compressible, spontaneous, phasic, competent and demonstrates normal competent and demonstrates normal augmentation. augmentation. T/P Trunk is compressible. T/P Trunk is compressible. PTV is compressible. PTV is compressible. RT PerV is compressible. LT PerV is compressible. SFJ is INCOMPETENT for greater than 0.5 SFJ is competent. seconds. GSV is INCOMPETENT throughout for greater GSV is INCOMPETENT throughout for greater than 0.5 seconds and measures 0.68 x 0.72 cm. than 0.5 seconds and measures 0.48 x 0.51 cm. SSV is competent. INCOMPETENT electro tech 10 cm above medial malleolus. Thrombus filled varicose veins medial calf. SSV is competent. GSV below knee acute thrombosis. Thrombus filled varicose veins lateral thigh. Thrombus filled varicose veis medial calf. Procedure Exam performed in department. A preliminary report was called and/or faxed to [employer] Interpretation Summary Deep veins of the lower extremities are bilaterally patent and compressible segmentally. There is no evidence of deep vein thrombosis on either side. Valvular competence appears intact within the proximal deep venous systems bilaterally. The right sapheno-femoral junction is incompetent . The left sapheno-femoral junction is competent . The right greater saphenous vein is incompetent and demonstrates acute superficial thrombophlebitis below the knee. The left greater saphenous vein is patent and incompetent. Small saphenous veins are patent and competent bilaterally. An incompetent electro tech vein is noted in the right calf, located 10 centimeters proximal to the right medial malleolus. Acute superficial thrombophlebitis is noted involving superficial varicosities in the right lateral thigh, right medial calf, and left medial calf. Ordering Physician: Radha Ramon Referring Physician: Radha Ramon Performed By: Erika Newberry RVT
== END | disposition home or self-care (01) ==
LOC: CVS 08:45
PROVIDERS: Family Provider Family Medicine; PCP Family Medicine; Referring Provider Family Medicine; Visit Provider Family Medicine
DX: I87.2 Venous insufficiency (chronic) (peripheral) (principal); I83.10 Varicose veins of unspecified lower extremity with inflammation
CPT/HCPCS: 93970

== ENCOUNTER → 2019-03-21 | Outpatient (CLI) | payer OTHER, SELFPAY ==
--- NOTE | 2019-03-21 11:30 | MRI_ITS ---
STUDY: MRI LEFT ANKLE WITHOUT CONTRAST REASON FOR EXAM: Female, 38 years old. Left ankle pain, tarsal tunnel. TECHNIQUE: Standardized fat and water weighted pulse sequences were obtained in all 3 orthogonal planes. COMPARISON: None. FINDINGS: Normal subcutis adipose space. Normal posterior tibialis tendon. Normal flexor digitorum longus tendon. Normal flexor hallucis longus tendon. Normal peroneus longus and brevis tendons. There is a 1.8 x 1.8 x 8.4 cm cystic lesion encasing the extensor digitorum longus muscle and tendon from the distal tibia to the navicular level. The tendon is intact, with no tendinosis or tear. Normal tibialis anterior tendon. Normal extensor hallucis longus tendon. Normal Achilles tendon and teno-osseous insertion. There is thickening of the plantar fascia, with mild edema signal at the origin. There is a moderate-sized plantar calcaneal spur, and moderate plantar calcaneal edema. Findings are consistent with plantar fasciitis. There is no high-grade tear of the plantar fascia. Mild edema in the medial cuneiform bone is consistent with degenerative change. Marrow signal is otherwise normal. Normal plantar calcaneal tubercles. Normal intrinsic muscles of the rearfoot. Intact Lisfranc ligament. Normal distal tibiofibular syndesmotic ligamentous complex. There is thickening of the anterior talofibular ligament, consistent with chronic, healed tear with fibrosis. Normal subtalar ligaments and sinus tarsi. Normal deltoid ligamentous complexes. Normal plantar calcaneonavicular (spring) ligament. Normal tibiotalar articulation. Normal talar dome. Small subtalar joint effusion. Normal talonavicular articulation. Normal calcaneocuboid articulation. Normal navicular-cuneiform articulations. MRI/Lower Ext Joint Only (Routine) IMPRESSION: 1. Plantar fasciitis. 2. An 8.4 cm ganglion cyst around the extensor digitorum longus muscle and tendon. 3. Mild degenerative changes of the medial cuneiform bone. 4. Small subtalar joint effusion. 5. Chronic anterior talofibular ligament tear. Electronically Signed: Reema Quintana MD at 22:14 EDT Tel , Service support ,
== END | disposition home or self-care (01) ==
PROVIDERS: Family Provider Family Medicine; PCP Family Medicine; Referring Provider Podiatrist; Visit Provider Podiatrist
DX: M72.2 Plantar fascial fibromatosis (principal); G57.52 Tarsal tunnel syndrome, left lower limb
CPT/HCPCS: 73721

== ENCOUNTER → 2019-05-09 14:26 | Outpatient (CLI) | payer OTHER, SELFPAY ==
[2019-05-09 16:00] LABS: Absolute Lymphocyte Count 2.14 X10^3/uL (0.83-4.51); Absolute Neutrophil Count 4.9 X10^3/uL (2.0-7.7); Basophil# 0.06 X10^3/uL; Basophil% 0.8 % (0-1); Eosinophil# 0.19 X10^3/uL; Eosinophils% 2.4 % (0-5); Hematocrit 39.2 % (37-47); Hemoglobin 12.3 g/dL (12.0-15.0); Lymphocyte # 2.14 X10^3/ul (4.0); Lymphocyte % 26.9 % (19-41); Mean Corp Hgb Conc 31.4 g/dL (32-36); Mean Corpuscular Hgb 27.2 pg (27.0-32.0); Mean Corpuscular Volume 86.7 fL (81-99); Mean Platelet Vol. 9.5 fl (6.2-12.0); Monocyte# 0.64 X10^3/uL; NRBC Flagged by Analyzer 0 % (0-5); Neutrophil # 4.91 X10^3/uL (2.7-7.7); Neutrophil % 61.5 % (47-70); Platelet Count 271 K/mm3 (150-450); RBC Distribution Width CV 13.6 % (11.6-14.6); RBC Distribution Width SD 42.8 fl (35.1-43.9); Red Blood Count 4.52 M/mm3 (4.2-5.4)
[2019-05-09 16:15] LABS: Anion Gap 8 (5-15); BUN 11 mg/dL (7-18); BUN/Creat Ratio 16.7 RATIO (10-20); Calcium,Total 8.8 mg/dL (8.5-10.1); Chloride 108 mmol/L (98-107); Creatinine, Serum 0.66 mg/dL (0.55-1.02); EST Glomerular Filtration Rate 107 mL/min (>60); Est Glom Filt Rate - Afr Amer 129 mL/min (>60); Glucose 84 mg/dL (74-106); Potassium 3.9 mmol/L (3.5-5.1); Sodium Level 141 mmol/L (136-145)
== END ==
PROVIDERS: Family Provider Family Medicine; PCP Family Medicine; Referring Provider Family Medicine; Visit Provider Family Medicine
DX: Z01.818 Encounter for other preprocedural examination (principal); M79.672 Pain in left foot
CPT/HCPCS: 36415; 80048; 85025

== ENCOUNTER 2019-05-12 05:28 | Day surgery (SDC) | payer OTHER, SELFPAY ==
[2018-06-15 00:48] VITALS: BMI 41.6
--- NOTE | 2019-05-11 15:58 | HP.PCM_ITS ---
Problem List (1) Foot pain, left Status: Chronic Comment: plantar fasciitis (2) Plantar fasciitis of left foot Status: Chronic (3) Tarsal tunnel syndrome of left side Status: Chronic History of Present Illness Date of Admission: 05/12/19 - re examined pt 05/12/19 at 7:15 am Chief Complaint: Pt is known to me from my private office where she has been treated for chronic plantar fasciitis and tarsal tunnel syndrome of the left foot The patient is a 39 year old F has been treated conservatively for plantar fasciitis and tarsal tunnel syndrome including injections, arch supports, stretching, rest, ice, change in shoes, etc. Conservative modalities have failed and pt is interested in surgical intervention. Past Medical History Past Medical History (Chronic Problems): Chronic Problems Foot pain, left (Chronic) plantar fasciitis Plantar fasciitis of left foot (Chronic) Tarsal tunnel syndrome of left side (Chronic) Allergies cephalexin monohydrate [From Keflex] Allergy (Verified 04/28/19 08:27) Other metronidazole [From Flagyl] Allergy (Verified 04/28/19 08:27) Other sulfamethoxazole [From Bactrim] Allergy (Verified 04/28/19 08:27) Upset Stomach trimethoprim [From Bactrim] Allergy (Verified 04/28/19 08:27) Upset Stomach Home Medications: Ambulatory Orders Medication Instructions Recorded NK 04/28/19 Smoking Status: Never smoker Tobacco Use: Non-smoker - *Family History Paternal History Items: No pertinent history Review of Systems Musculoskeletal: Reports: Foot Pain - Severe pain with palpation of medial calcaneal tubercle of left foot. No pain with lateral compression. MRI confirmed thickening of the plantar fascia with edema. No tears. Neurological: Reports: Tingling - Tingling and pain are seen with percussion of the tarsal tunnel left foot. VTE Information - Inpt Only VTE Present on Admission: No Reason prophylaxis not ordered:: Treatment Not Indicated - Pt admitted for outpatient surgical intervention Subjective: Pt presents for outpatient surgical intervention. Objective: Pt presented with pain to left foot. - Physical Exam Extremities: Peripheral Pulses Normal Skin: No breakdown Assessment/Plan All Active Problems SIRS (systemic inflammatory response syndrome) (Acute) Allergic reaction to Bactrim (Acute) Dx: 1.Chronic plantar fasciitis left foot 2. Tarsal Tunnel Syndrome left foot Risks, complications, alternative treatments were discussed with pt in detail. No guarantees were given. All questions were answered. Consent was reviewed, signed, and placed in chart. Pt will report to [facility] for outpatient surgical intervention the morning of Wednesday, May 12, 2019. She will be NWB and already has walking aids. Medication escribed for pain control.
[2019-05-12] VITALS (7 sets, daily range): BP systolic 112–126; BP diastolic 65–99; PULSE 65–74; RESP 16–18; TEMP 36.4–37; O2SAT 94–100; BMI 41.8
[2019-05-12] MEDS: Lactated Ringers 1,000 ML 100 ML IV (06:57)
--- NOTE | 2019-05-12 16:47 | OP.PCM_ITS ---
Problem List (1) Foot pain, left Status: Chronic Comment: plantar fasciitis (2) Plantar fasciitis of left foot Status: Acute (3) Tarsal tunnel syndrome of left side Status: Acute Report of Operation Date of Procedure: 05/12/19 Pre-Operative Diagnosis: Plantar Fasciitis left foot, chronic. Tarsal Tunnel Syndrome, left foot Post-Operative Diagnosis: same Surgery/Procedure Performed:: Endoscopic Plantar Fasciotomy left foot. Tarsal Tunnel Release left foot Description of Surgical Findings:: Varicosities are present within tarsal tunnel Type of Anesthesia:: General Anesthesiologist: Phil Bedoya Specimen's removed: none Drains: none Estimated Blood Loss (mL): 10cc's Description of Procedure: Under mild sedation, the pt was brought into the OR and placed on the operating table in the supine position. A pneumatic thigh tourniquet was placed about the pt's left thigh. Following general anesthesia, the left foot and lower leg were scrubbed and prepped in the usual aseptic manner. The left limb was then elevated to exsanguinate and the thigh tourniquet was inflated to 300mmHg. Attention was then directed to the medial posterior ankle area where approximately 6cm curvilinear incision was made between the Achilles and medial malleolus of the left foot. The incision was deepened through blunt dissection. All superficial bleeding vessels were cauterized and ligated as necessary. One vessel was tied with vicryl suture. Deeper, the flexor retinaculum was then located. It was dissected free from deep soft tissue and a longitudinal incision was made with tenotomy scissors, being careful to protect the deep veins. Then, immediately, there were 3 large tortuous veins noted within the tarsal tunnel. They were lightly dissected from the deep tissue. Area was inspected for further space occupying lesions. None were located. Wound was flushed with copious amounts of NSS. Deep subcutaneous tissues were reapproximated and coapted utilizing 3-0 vicryl. Superficial subcutaneous tissues were reapproximated similarly. Skin was reapproximated and coapted utilizing 3-0 monocryl sutures. Cavalon was utilized and then steri strips were applied to the incision for further strength. Next, attention was directed to the plantar medial left calcaneal tubercle, at the origin of the plantar fascia. A 1.5cm linear longitudinal incision was made which was deepened bluntly with the Ben elevator. This was placed in the incision and directed laterally deep to the plantar fascia, superficial to the fat pad. Next, the cannula and obturator were introduced in a similar manner. The lateral skin tented and another 1.5cm incision was made on the lateral aspect of the heel. The obturator was removed. With the endoscope on the lateral opening, the probe was inserted medially. The area was probed and then the hook knife was inserted medially. Approximately 50% of the plantar fascia was incised from the medial aspect. The felxor digitorum brevis muscle belly was then exposed. The wound was flushed with copious amounts of NSS and all instruments, including the cannula, were removed. The medial and lateral incisions were reapproximated and coapted utilizing 3-0 Prolene sutures. All incisions were dressed with xeroform and covered with a sterile compressive dressing consisting of 4x4's, ABD pad, Kerlix, and an sharyn wrap. The pneumatic thigh tourniquet was released and a prompt hyperemic response was noted to all digits of the left foot. Following a period of post operative monitoring, the patient will be discharged home with written and oral post operative instructions. She is to keep the dressing clean, dry, intact. Remain NWB with crutches or knee walker. Take oral pain medication as directed. Rest, ice, e levate and avoid excessive ambulation. Follow at Dr. Quintanilla's office for all post operative and follow up care. Contact Dr. Quintanilla with any concerns. - Complications none - Admit VTE Documentation VTE Mechan Device Prophylaxis: SCD's VTE Pharm Prophylaxis ordered?: No Reason prophylaxis not ordered:: Treatment Not Indicated
== END 2019-05-12 11:05 | disposition home or self-care (01) ==
LOC: SDC 05:29 → AC 05:30
PROVIDERS: Family Provider Family Medicine; PCP Family Medicine; Referring Provider Podiatrist; Visit Provider Podiatrist
PROC: (CPT 29893; principal; 2019-05-12 07:00)
DX: M72.2 Plantar fascial fibromatosis (principal); G57.52 Tarsal tunnel syndrome, left lower limb; M41.9 Scoliosis, unspecified; M06.9 Rheumatoid arthritis, unspecified
CPT/HCPCS: 01470; 28035; 29893; J7120; J2405

== ENCOUNTER → 2020-05-27 08:45 | Outpatient (CLI) | payer OTHER, SELFPAY ==
[2019-05-12 05:50] VITALS: BMI 41.8
--- NOTE | 2020-05-27 08:49 | BI_ITS ---
MAMMOGRAPHY - BILATERAL DIAGNOSTIC REASON FOR EXAM: Female, 40 years old. Left breast pain and palpable lump at the 2 o''clock position of the breast. PERTINENT HISTORY: Non-contributory. TECHNIQUE: Digital bilateral breast herberth (3D mammographic acquisition) in the CC and MLO projections. 2-D mediolateral oblique (MLO) and craniocaudad (CC) views of both breasts were obtained. CAD: Full Field Digital Mammography with Computer Added Detection was performed. COMPARISON: None. Baseline examination. FINDINGS: Breast Composition: The breasts are heterogeneously dense, which may obscure small masses. There are no dominant masses or suspicious calcifications. There is asymmetry of breast tissue with normal breast tissue is seen in the upper outer quadrant of the left breast. This corresponds to the palpable abnormality. Correlation with ultrasound is recommended. No other significant abnormalities are identified. BI/DIAG MAMM W/CAD, BILAT IMPRESSION: Asymmetry of breast tissue with more breast tissue is seen in the upper outer quadrant of the left breast as compared to the right side. Correlation with ultrasound is recommended. ASSESSMENT CATEGORY: BIRADS Category 0: Incomplete. Need additional imaging evaluation. A letter regarding these results will be sent to the patient by the facility within 30 days. Approximately 10% of breast cancers are not detected by mammography. A normal mammogram should not delay biopsy of a clinically suspicious abnormality. Electronically Signed: Rudy Corado, at 11:29 EDT , Service support ,
--- NOTE | 2020-05-27 08:49 | US_ITS ---
STUDY: ULTRASOUND BREAST - LEFT REASON FOR EXAM: Female, 40 years old. Pain in the left breast. TECHNIQUE: Axial and longitudinal images of the LEFT breast were performed with a high resolution ultrasound transducer. # OF IMAGES: 93 COMPARISON: Comparison is made with prior mammogram done earlier today. FINDINGS: LEFT Breast: The upper lateral aspect of the left breast was examined by ultrasound. There is homogeneous fibroglandular tissue. No solid or cystic mass lesion is seen. US/Breast Limited Unilateral IMPRESSION: Unremarkable sonographic examination of the upper outer quadrant of the breast. ASSESSMENT CATEGORY: BIRADS Category 2: Benign. A letter regarding these results will be sent to the patient by the facility within 30 days. Electronically Signed: Rudy Corado, at 15:15 EDT , Service support ,
== END ==
PROVIDERS: PCP Family Medicine; Referring Provider Family Medicine; Visit Provider Family Medicine
DX: N64.4 Mastodynia (principal); N63.21 Unspecified lump in the left breast, upper outer quadrant
CPT/HCPCS: 76642; 77062; 77066; G0279

== ENCOUNTER → 2020-06-03 09:52 | Outpatient (CLI) | payer OTHER, SELFPAY ==
[2019-05-12 05:50] VITALS: BMI 41.8
--- NOTE | 2020-06-03 09:54 | RAD_ITS ---
STUDY: X-RAY - LEFT KNEE REASON FOR EXAM: Female, 40 years old. Left knee pain TECHNIQUE: 4 view(s) of the knee. COMPARISON: None. FINDINGS: Normal visualized distal femur. Normal visualized proximal tibia and fibula. Normal proximal tibiofibular articulation. Normal medial femorotibial compartment. Normal lateral femorotibial compartment. Normal patellofemoral articulation. The soft tissue structures are unremarkable. RAD/Knee 4 or More Views IMPRESSION: Normal x-ray examination of the knee. Electronically Signed: Rudy Corado, at 10:26 EDT , Service support ,
== END ==
PROVIDERS: PCP Family Medicine; Referring Provider Family Medicine; Visit Provider Family Medicine
DX: M25.562 Pain in left knee (principal)
CPT/HCPCS: 73564

== ENCOUNTER → 2020-07-29 13:24 | Outpatient (CLI) | payer OTHER, SELFPAY ==
[2019-05-12 05:50] VITALS: BMI 41.8
[2020-07-29 15:57] LABS: Absolute Lymphocyte Count 2.14 X10^3/uL (0.83-4.51); Absolute Neutrophil Count 5.2 X10^3/uL (2.0-7.7); Basophil# 0.05 X10^3/uL; Basophil% 0.6 % (0-1); Eosinophil# 0.22 X10^3/uL; Eosinophils% 2.7 % (0-5); Hematocrit 37.2 % (37-47); Hemoglobin 12.6 g/dL (12.0-15.0); Lymphocyte # 2.14 X10^3/ul (4.0); Lymphocyte % 25.9 % (19-41); Mean Corp Hgb Conc 33.9 g/dL (32-36); Mean Corpuscular Hgb 30.1 pg (27.0-32.0); Mean Platelet Vol. 9.4 fl (6.2-12.0); Monocyte# 0.61 X10^3/uL; Monocyte% 7.4 % (0-10); NRBC Flagged by Analyzer 0 % (0-5); Neutrophil # 5.21 X10^3/uL (2.7-7.7); Neutrophil % 62.9 % (47-70); Platelet Count 222 K/mm3 (150-450); RBC Distribution Width CV 13.7 % (11.6-14.6); RBC Distribution Width SD 42.2 fl (35.1-43.9); Red Blood Count 4.18 M/mm3 (4.2-5.4); White Blood Count 8.3 K/mm3 (4.4-11.0)
[2020-07-29 16:27] LABS: ALB/GLOB Ratio 1.1 RATIO (0.9-2.4); AST(SGOT) 21 U/L (15-37); Alanine Aminotransfer ALT/SGPT 36 U/L (13-56); Albumin, Serum 3.8 g/dL (3.2-5.0); Alkaline Phosphatase 52 U/L (45-117); Anion Gap 7 (5-15); BUN 9 mg/dL (7-18); BUN/Creat Ratio 14.3 RATIO (10-20); Chloride 103 mmol/L (98-107); Creatinine, Serum 0.63 mg/dL (0.55-1.02); EST Glomerular Filtration Rate 112 mL/min (>60); Est Glom Filt Rate - Afr Amer 135 mL/min (>60); Globulin 3.4 g/dL (2.2-4.2); Glucose 91 mg/dL (74-106); Iron 41 ug/dL (50-170); Magnesium 2.2 mg/dL (1.6-2.6); Potassium 4.1 mmol/L (3.5-5.1); Protein, Total 7.2 g/dL (6.4-8.2); Sodium Level 138 mmol/L (136-145)
[2020-07-29 16:28] LABS: Vitamin B12 633 pg/mL (211-911)
== END ==
PROVIDERS: PCP Family Medicine; Referring Provider Family Medicine; Visit Provider Family Medicine
DX: M79.604 Pain in right leg (principal); M79.605 Pain in left leg; R53.83 Other fatigue; R20.2 Paresthesia of skin
CPT/HCPCS: 36415; 80053; 82607; 83540; 83735; 85025

== ENCOUNTER → 2022-02-11 | Outpatient (CLI) | payer OTHER, SELFPAY ==
--- NOTE | 2022-02-11 | MASS_PTH ---
PATIENT: SHRUTI BATRES [facility] U#:[id number] AGE/SX: 41/F ROOM: RE02/11/[address]: Dr. Radha Ramon DO : 1980 BED: DIS: 02/11/2022 SPEC #: [id number] RECD: 02/11/22 17:43 STATUS: MARCIAL NALINI #: [id number] ERIKA: 02/11/22 00:[address]: Radha Ramon DEPT: SURGICAL PATHOLOGY RECD BY: Anirudh Roblero Tissues: Back, NOS Procedures: Surgery Specimen Level III HEADER OPERATION: Excision subcutaneous cystic mass left back PRE-OP DIAGNOSIS: History sebaceous cyst TISSUE SUBMITTED: Subcutaneous mass left back MICROSCOPIC DIAGNOSIS Subcutaneous mass left back, excision: Epidermal inclusion cyst. YFN:power 02/13/2022 MICROSCOPIC DESCRIPTION Slides are reviewed. GROSS DESCRIPTION Received in fixative is one container labeled with the patient's name and designated left back. The specimen consists of a piece of skin with underlying tissue. The skin piece measures 2 x 0.5 cm. The underlying tissue measures 3 x 1.8 x 1.4 cm. sections reveal a previously ruptured cyst in the underlying tissue. Scarf Gluer sections are submitted in one cassette. / SJ:power 02/12/2022 TC:5 CPT: [id number]
== END | disposition home or self-care (01) ==
PROVIDERS: PCP Family Medicine; Referring Provider Family Medicine; Visit Provider Family Medicine
DX: L72.0 Epidermal cyst (principal)
CPT/HCPCS: 88304; 88305

== ENCOUNTER → 2022-05-21 | Outpatient (CLI) | payer OTHER, SELFPAY ==
[2022-05-21 15:31] LABS: Absolute Lymphocyte Count 2.16 X10^3/uL (0.83-4.51); Absolute Neutrophil Count 6.2 X10^3/uL (2.0-7.7); Basophil# 0.06 X10^3/uL; Basophil% 0.6 % (0-1); Eosinophil# 0.21 X10^3/uL; Eosinophils% 2.2 % (0-5); Hemoglobin 13.6 g/dL (12.0-15.0); Lymphocyte # 2.16 X10^3/ul (0.83-4.51); Lymphocyte % 23.1 % (19-41); Mean Corpuscular Hgb 30.8 pg (27.0-32.0); Mean Corpuscular Volume 90.7 fL (81-99); Mean Platelet Vol. 9.2 fl (6.2-12.0); Monocyte# 0.74 X10^3/uL; Monocyte% 7.9 % (0-10); NRBC Flagged by Analyzer 0 % (0-5); Neutrophil # 6.15 X10^3/uL (2.7-7.7); Neutrophil % 65.7 % (47-70); Platelet Count 277 K/mm3 (150-450); RBC Distribution Width CV 13.1 % (11.6-14.6); RBC Distribution Width SD 42.4 fl (35.1-43.9); Red Blood Count 4.41 M/mm3 (4.2-5.4); White Blood Count 9.4 K/mm3 (4.4-11.0)
[2022-05-21 15:58] LABS: AST(SGOT) 24 U/L (15-37); Alanine Aminotransfer ALT/SGPT 48 U/L (13-56); Albumin, Serum 3.7 g/dL (3.2-5.0); Alkaline Phosphatase 55 U/L (45-117); Anion Gap 8 (5-15); BUN 12 mg/dL (7-18); BUN/Creat Ratio 17.4 RATIO (10-20); Calcium,Total 9.5 mg/dL (8.5-10.1); Chloride 106 mmol/L (98-107); Cholesterol 182 mg/dL (200); Creatinine, Serum 0.69 mg/dL (0.55-1.02); EST Glomerular Filtration Rate 99 mL/min (>60); Est Glom Filt Rate - Afr Amer 120 mL/min (>60); Globulin 3.6 g/dL (2.2-4.2); Glucose 104 mg/dL (74-106); High Density Lipoprotein 48 mg/dL; Potassium 3.7 mmol/L (3.5-5.1); Protein, Total 7.3 g/dL (6.4-8.2); Sodium Level 138 mmol/L (136-145); Triglycerides 91 mg/dL; Very Low Density Lipoprotein 18 mg/dL (5-40)
== END | disposition home or self-care (01) ==
LOC: BFHLAB 11:15
PROVIDERS: PCP Family Medicine; Visit Provider Family Medicine
DX: Z00.00 Encounter for general adult medical examination without abnormal findings (principal)
CPT/HCPCS: 36415; 80053; 80061; 85025

== ENCOUNTER → 2022-06-05 | Outpatient (CLI) | payer OTHER, SELFPAY ==
--- NOTE | 2022-06-05 10:50 | BI_ITS ---
MAMMOGRAPHY - BILATERAL SCREENING REASON FOR EXAM: Female, 42 years old. Routine annual screening examination. PERTINENT HISTORY: Non-contributory. TECHNIQUE: Digital bilateral breast jo ann (3D mammographic acquisition) in the CC and MLO projections. 2-D mediolateral oblique (MLO) and craniocaudad (CC) views of both breasts were obtained. CAD: Full Field Digital Mammography with Computer Added Detection was performed. COMPARISON: Comparison is made with prior examination dated 05/27/2020. FINDINGS: Breast Composition: The breasts are heterogeneously dense, which may obscure small masses. There are no dominant masses or suspicious calcifications. Stable asymmetric breast tissue with more breast tissue is seen in the upper-outer quadrant of left breast as compared to the right side. Prior targeted ultrasound demonstrated this to be breast tissue. No other significant abnormalities are identified. There has been no significant change since the prior study. BI/SCRN MAMM (CAD)W/JO ANN BILAT IMPRESSION: Stable bilateral screening mammogram. Yearly follow-up mammogram recommended. (A) ASSESSMENT CATEGORY: BIRADS Category 2: Benign. A letter regarding these results will be sent to the patient by the facility within 30 days. Approximately 10% of breast cancers are not detected by mammography. A normal mammogram should not delay biopsy of a clinically suspicious abnormality. [id number] Electronically Signed: Rudy Corado MD at 11:55 EDT ,
== END | disposition home or self-care (01) ==
LOC: OPBI 10:49
PROVIDERS: PCP Family Medicine; Referring Provider Family Medicine; Visit Provider Family Medicine
DX: Z12.31 Encounter for screening mammogram for malignant neoplasm of breast (principal)
CPT/HCPCS: 77063; 77067

== ENCOUNTER → 2023-01-18 | Outpatient (CLI) | payer OTHER, SELFPAY ==
[2023-01-18 15:28] LABS: Absolute Lymphocyte Count 2.71 X10^3/uL (0.83-4.51); Basophil# 0.06 X10^3/uL; Basophil% 0.5 % (0-1); Eosinophil# 0.26 X10^3/uL; Eosinophils% 2.4 % (0-5); Ferritin 28 ng/mL (8-252); Hematocrit 42.8 % (37-47); Hemoglobin 14.1 g/dL (12.0-15.0); Iron 51 ug/dL (50-170); Lymphocyte # 2.71 X10^3/ul (0.83-4.51); Lymphocyte % 24.7 % (19-41); Mean Corp Hgb Conc 32.9 g/dL (32-36); Mean Corpuscular Hgb 30.7 pg (27.0-32.0); Mean Corpuscular Volume 93.2 fL (81-99); Mean Platelet Vol. 9.4 fl (6.2-12.0); Monocyte# 0.88 X10^3/uL; NRBC Flagged by Analyzer 0 % (0-5); Neutrophil % 63.9 % (47-70); Platelet Count 320 K/mm3 (150-450); RBC Distribution Width CV 12.5 % (11.6-14.6); RBC Distribution Width SD 42.6 fl (35.1-43.9); Red Blood Count 4.59 M/mm3 (4.2-5.4)
== END | disposition home or self-care (01) ==
LOC: BFHLAB 13:19
PROVIDERS: PCP Family Medicine; Referring Provider Family Medicine; Visit Provider Family Medicine
DX: D50.9 Iron deficiency anemia, unspecified (principal); Z51.81 Encounter for therapeutic drug level monitoring
CPT/HCPCS: 36415; 82728; 83540; 85025

== ENCOUNTER → 2023-05-31 | Outpatient (CLI) | payer OTHER, SELFPAY ==
[2023-06-04 17:07] LABS: HPV APTIMA, High Risk Negative (Negative)
== END | disposition home or self-care (01) ==
PROVIDERS: PCP Family Medicine; Referring Provider Nurse Practitioner Women's Health; Visit Provider Nurse Practitioner Women's Health
DX: Z12.4 Encounter for screening for malignant neoplasm of cervix (principal)
CPT/HCPCS: 87624; 88175; G0145

== ENCOUNTER → 2023-06-15 | Outpatient (CLI) | payer OTHER, SELFPAY ==
--- NOTE | 2023-06-15 07:51 | US_ITS ---
STUDY: ULTRASOUND OF THE FEMALE PELVIS - COMPLETE REASON FOR EXAM: Female, 43 years old. AUB LMP: May 10, 2023. TECHNIQUE: Transabdominal and Transvaginal TECHNICAL QUALITY: Limited. Examination limited due to obesity. COMPARISON: None. FINDINGS: The uterus is anteverted and is in a midline position. The uterus measures 12.3 cm x 6.7 cm x 5 cm. Normal uterine cervix. The endometrium measures 10 mm in thickness, and is heterogeneous (striated). There is no demonstrated endometrial mass. There is no demonstrated myometrial mass. I.U.D. - The patient does not have an I.U.D. The right ovary is visualized. The right ovary measures 4.6 cm x 2.6 x 2.6 cm. There is a 2.3 cm x 2.2 cm x 2.4 cm right ovarian cyst. There is no visualized right adnexal mass or complex lesion. There is normal arterial and normal venous vascularity. The left ovary is visualized. The left ovary measures 2.6 cm x 2.1 cm x 1.4 cm. There is no left ovarian cyst or ovarian mass. There is no visualized left adnexal mass or complex lesion. There is normal arterial and normal venous vascularity. There is no fluid in the cul-de-sac. The pre void volume of the bladder was 252 ml. US/Pelvic w/ Transvaginal IMPRESSION: Right ovarian cyst. Electronically Signed: Rudy Corado MD at 15:32 EST ,
--- NOTE | 2023-06-15 07:53 | BI_ITS ---
MAMMOGRAPHY - BILATERAL SCREENING REASON FOR EXAM: Female, 43 years old. Routine annual screening examination. PERTINENT HISTORY: Non-contributory. TECHNIQUE: Digital bilateral breast jo ann (3D mammographic acquisition) in the CC and MLO projections. 2-D mediolateral oblique (MLO) and craniocaudad (CC) views of both breasts were obtained. CAD: Full Field Digital Mammography with Computer Added Detection was performed. COMPARISON: Comparison is made with prior study dated June 05, 2022 and May 27, 2020. FINDINGS: Breast Composition: The breasts are heterogeneously dense, which may obscure small masses. There are no dominant masses or suspicious calcifications. Stable asymmetry of breast tissue or more breast tissue is seen in the upper-outer quadrant of the left breast as compared to the right side. Prior sonogram demonstrated this to be glandular tissue. No other significant abnormalities are identified. There has been no significant change since the prior study. BI/SCRN MAMM (CAD)W/JO ANN BILAT IMPRESSION: Stable bilateral screening mammogram. Yearly follow-up mammogram recommended. (A) ASSESSMENT CATEGORY: BIRADS Category 2: Benign. A letter regarding these results will be sent to the patient by the facility within 30 days. Approximately 10% of breast cancers are not detected by mammography. A normal mammogram should not delay biopsy of a clinically suspicious abnormality. [id number] Electronically Signed: Rudy Corado MD at 9:48 EST ,
== END | disposition home or self-care (01) ==
PROVIDERS: PCP Family Medicine; Referring Provider Nurse Practitioner Women's Health; Visit Provider Nurse Practitioner Women's Health
DX: Z12.31 Encounter for screening mammogram for malignant neoplasm of breast (principal); N93.9 Abnormal uterine and vaginal bleeding, unspecified
CPT/HCPCS: 76830; 76856; 77063; 77067

== ENCOUNTER → 2023-11-22 | Outpatient (CLI) | payer OTHER, SELFPAY ==
[2023-11-22 17:44] LABS: Absolute Lymphocyte Count 1.83 X10^3/uL (0.83-4.51); Absolute Neutrophil Count 6.3 X10^3/uL (2.0-7.7); Basophil# 0.05 X10^3/uL; Basophil% 0.5 % (0-1); Eosinophil# 0.33 X10^3/uL; Eosinophils% 3.6 % (0-5); Hematocrit 39.7 % (37-47); Hemoglobin 12.6 g/dL (12.0-15.0); Lymphocyte # 1.83 X10^3/ul (0.83-4.51); Lymphocyte % 19.8 % (19-41); Mean Corp Hgb Conc 31.7 g/dL (32-36); Mean Corpuscular Hgb 27.9 pg (27.0-32.0); Mean Platelet Vol. 9.4 fl (6.2-12.0); Monocyte# 0.74 X10^3/uL; NRBC Flagged by Analyzer 0 % (0-5); Neutrophil # 6.26 X10^3/uL (2.7-7.7); Neutrophil % 67.6 % (47-70); Platelet Count 287 K/mm3 (150-450); RBC Distribution Width SD 44.5 fl (35.1-43.9); Red Blood Count 4.51 M/mm3 (4.2-5.4); White Blood Count 9.3 K/mm3 (4.4-11.0)
--- NOTE | 2023-11-22 17:45 | CT_ITS ---
We are attempting to reach an attending provider to discuss findings. An addendum with communication details will be sent when the communication is complete. STUDY: CTA CHEST REASON FOR EXAM: Female, 43 years old. PE RADIATION DOSAGE (If Supplied By Facility): CTDIvol = ( 11.39 ) mGy, DLP = ( 513.33 ) mGycm TECHNIQUE: The examination was performed with the intravenous administration of IV 100mL Isovue-370. Post-processing of the angiographic images was performed, with multiplanar reformation and 3D reconstruction. Individualized dose optimization techniques were used for this CT. COMPARISON: None. FINDINGS: Normal enhancement of the main pulmonary artery and right and left pulmonary arteries. There are filling defects involving third and fourth order branches of bilateral pulmonary arteries consistent with embolism . Normal thoracic aorta and visualized great vessels. There is no demonstrated aortic dissection. The right central to left ventricle ratio is 1.0 consistent with strain. Normal mediastinum. Normal hilar regions. Normal visualized trachea and bronchi. The lungs are well expanded. Normal pulmonary parenchyma. Normal pleura. Normal chest wall structures. There are degenerative changes of thoracic spine. Normal visualized upper abdomen. CT/CTA Chest W/WO Contrast IMPRESSION: Abnormal CTA chest examination, with bilateral pulmonary embolism and right heart strain. Electronically Signed: Bunny Magdaleno MD at 18:11 EDT ,
[2023-11-22 18:08] LABS: Erythrocyte Sedimentation Rate 16 mm/hr (0-30); Total Cells Counted 9.3 (MANUAL DIFF)
[2023-11-22 18:48] LABS: D-Dimer Quantitative (DVT/PE) 3.57 FEU/ug/m (0.27-0.49)
[2023-11-22 18:53] LABS: ALB/GLOB Ratio 0.9 RATIO (0.9-2.4); AST(SGOT) 17 U/L (15-37); Alanine Aminotransfer ALT/SGPT 24 U/L (13-56); Albumin, Serum 3.6 g/dL (3.2-5.0); Alkaline Phosphatase 56 U/L (45-117); Anion Gap 4 (5-15); BUN 9 mg/dL (7-18); BUN/Creat Ratio 11.6 RATIO (10-20); Calcium,Total 8.7 mg/dL (8.5-10.1); Chloride 106 mmol/L (98-107); Creatinine, Serum 0.78 mg/dL (0.55-1.02); EST Glomerular Filtration Rate 86 mL/min (>60); Est Glom Filt Rate - Afr Amer 104 mL/min (>60); Ferritin 36 ng/mL (8-252); Globulin 3.8 g/dL (2.2-4.2); Glucose 83 mg/dL (74-106); Iron 30 ug/dL (50-170); Potassium 3.4 mmol/L (3.5-5.1); Protein, Total 7.4 g/dL (6.4-8.2); Sodium Level 139 mmol/L (136-145); Troponin-I HS 4 pg/mL (3.0-54.0)
[2023-11-23 13:26] LABS: Lipase 29 U/L (13-75)
[2023-11-24 14:09] LABS: ANTINUCLEAR ANTIBODIES DIRECT Negative (Negative)
== END | disposition home or self-care (01) ==
PROVIDERS: PCP Family Medicine; Referring Provider Family Medicine; Visit Provider Family Medicine
DX: Z51.81 Encounter for therapeutic drug level monitoring (principal); L40.50 Arthropathic psoriasis, unspecified; R10.9 Unspecified abdominal pain; M79.10 Myalgia, unspecified site; M25.50 Pain in unspecified joint; E61.1 Iron deficiency; R07.9 Chest pain, unspecified; R06.00 Dyspnea, unspecified
CPT/HCPCS: 36415; 71275; 80053; 82728; 83540; 83690; 84484; 85025; 85379; 85652; 86038; 86140; 86225; 86235; Q9967; A4216

== ENCOUNTER → 2023-12-07 | Outpatient (CLI) | payer OTHER, SELFPAY ==
--- NOTE | 2023-12-07 08:55 | VDLE_ITS ---
Reason For Study: PE RIGHT LEFT GSV is normal. CFV is compressible, spontaneous, phasic, CFV is compressible, spontaneous, phasic, competent, and demonstrates normal competent and demonstrates normal augmentation. augmentation. FV is compressible, spontaneous, phasic, FV is compressible, spontaneous, phasic, competent and demonstrates normal competent and demonstrates normal augmentation. augmentation. POP V is compressible, spontaneous, phasic, POP V is compressible, spontaneous, phasic, competent and demonstrates normal competent and demonstrates normal augmentation. augmentation. T/P Trunk is compressible. T/P Trunk is compressible. PTV is compressible. PTV is compressible. LT PerV is compressible. RT PerV is compressible. GSV AT SFJ TO PROX THIGH is compressible. Procedure GSV IS DILATED & NONCOMPRESSIBLE AT PROX Exam performed in department. THIGH TO ANKLE. A preliminary report was called and/or faxed to DR. Ramon @ 09:45 am. VL/Venous Duplex US - Dario Extrem Interpretation Summary Deep veins of the lower extremities are bilaterally patent and compressible seg mentally. There is no evidence of deep vein thrombosis on either side. Valvular competence appears in tact within the proximal deep venous systems bilaterally. The right great saphenous vein appear s patent and compressible segmentally. Acute superficial thrombophlebitis is noted in the le ft great saphenous vein from the proximal thigh to the left ankle. Ordering Physician: Radha Ramon Referring Physician: Radha Ramon Performed By: Cathy Alberts, RDCS, RVT
== END | disposition home or self-care (01) ==
PROVIDERS: PCP Family Medicine; Referring Provider Family Medicine; Visit Provider Family Medicine
DX: I26.99 Other pulmonary embolism without acute cor pulmonale (principal)
CPT/HCPCS: 93970

== ENCOUNTER → 2024-01-26 | Outpatient (CLI) | payer OTHER, SELFPAY ==
--- NOTE | 2024-01-26 06:49 | ECHOD_ITS ---
Reason For Study: DYSPNEA, CHEST PAIN Procedure This was a 2D Doppler, Color Flow transthoracic echocardiogram. Exam performed in department. Left Ventricle Normal LV size. Left ventricular systolic function is normal. The left ventricular ejection fraction is 60 %. Stage 1 diastolic dysfunction. No regional wall motion abnormalities noted. Right Ventricle Normal RV size. Normal systolic function. Atria Normal left atrium. Normal right atrium. Mitral Valve Normal mitral valve. Tricuspid Valve Normal tricuspid valve. Mild (1+) tricuspid valve insufficiency. Pulmonary artery systolic pressure is 30 mmHg. Aortic Valve Trisinus/trileaflet aortic valve. Pulmonic Valve Normal pulmonic valve. Great Vessels Mildly dilated aortic root. The pulmonary artery is normal size. Normal inferior vena cava. Pericardium/Pleural No pericardial effusion. MMode/2D Measurements & Calculations LVIDd: 5.5 cm IVSd: 1.1 cm Ao root diam: 3.9 cm LVIDs: 3.7 cm LVPWd: 0.98 cm RVDd: 3.3 cm FS: 32.9 % LAV(MOD-bp): 53.7 ml LVAd ap4: 36.4 cm2 SV(MOD-sp4): 73.4 ml LAV(MOD-bp) Indexed: 20.9 ml/m2 LVLd ap4: 8.8 cm LAV(MOD-sp2): 55.7 ml EDV(MOD-sp4): 122.0 ml LAV(MOD-sp4): 49.0 ml EDV(sp4-el): 127.7 ml LVAs ap4: 21.9 cm2 LVLs ap4: 8.1 cm ESV(MOD-sp4): 48.6 ml ESV(sp4-el): 50.0 ml EF(MOD-sp4): 60.2 % EF(sp4-el): 60.8 % SV(sp4-el): 77.6 ml LA A4 area: 17.3 cm2 LA dimension(2D): 4.0 cm RA A4 area: 18.2 cm2 TAPSE: 2.4 cm Time Measurements MV dec time: 0.27 sec Doppler Measurements & Calculations MV E max rodrigue: 76.7 cm/sec Lat Peak E' Rodrigue: 6.4 cm/sec Med Peak E' Rodrigue: 7.9 cm/sec MV A max rodrigue: 89.8 cm/sec E/E' lat: 12.0 E/E' med: 9.7 MV E/A: 0.85 MV V2 max: 94.9 cm/sec MV P1/2t max rodrigue: 83.7 cm/sec Ao V2 max: 125.8 cm/sec MV max P.6 mmHg MV P1/2t: 74.4 msec Ao max P.3 mmHg MV V2 mean: 54.4 cm/sec Ao V2 mean: 92.2 cm/sec MV mean P.3 mmHg MV dec slope: 329.5 cm/sec2 Ao mean P.6 mmHg MV V2 VTI: 24.9 cm MVA(P1/2t): 3.0 cm2 Ao V2 VTI: 25.9 cm AV (velocity ratio): 0.87 LV V1 max: 103.5 cm/sec PA V2 max: 97.5 cm/sec TR max rodrigue: 253.0 cm/sec LV V1 max P.3 mmHg PA V2 mean: 70.9 cm/sec TR max P.6 mmHg LV V1 mean P.7 mmHg LV V1 mean: 78.9 cm/sec LV V1 VTI: 22.7 cm ECHO/Echo Complete Interpretation Summary Normal LV size. Left ventricular systolic function is normal. No regional wall motion abnormalities noted. The left ventricular ejection fraction is 60 %. Mildly dilated aortic root. Stage 1 diastolic dysfunction. Ordering Physician: Radha Ramon Referring Physician: Radha Ramon Performed By: Cathy Alberts, ROMEO, RVT
== END | disposition home or self-care (01) ==
PROVIDERS: PCP Family Medicine; Referring Provider Family Medicine; Visit Provider Family Medicine
DX: R07.9 Chest pain, unspecified (principal); R06.00 Dyspnea, unspecified
CPT/HCPCS: 93306

== ENCOUNTER → 2024-02-21 | Outpatient (CLI) | payer OTHER, SELFPAY ==
--- NOTE | 2024-02-21 16:56 | CT_ITS ---
STUDY: CTA CHEST REASON FOR EXAM: Female, 43 years old. DYSPNEA. History of pulmonary embolism. RADIATION DOSAGE (If Supplied By Facility): CTDIvol = ( 19.79 ) mGy, DLP = ( 550.54 ) mGycm TECHNIQUE: The examination was performed with the intravenous administration of IV 100mL Isovue-370. Post-processing of the angiographic images was performed, with multiplanar reformation and 3D reconstruction. Individualized dose optimization techniques were used for this CT. COMPARISON: Comparison is made with prior study dated November 22, 2023. FINDINGS: Normal enhancement of the main pulmonary artery and right and left pulmonary arteries. Normal enhancement of the bilateral peripheral pulmonary arteries. There is no demonstrated pulmonary embolism. Normal thoracic aorta and visualized great vessels. There is no demonstrated aortic dissection. Normal heart and pericardium. Normal mediastinum. Normal hilar regions. Normal visualized trachea and bronchi. The lungs are well expanded. Normal pulmonary parenchyma. Normal pleura. Normal chest wall structures. Normal osseous structures. The patient is status post cholecystectomy. CT/CTA Chest W/WO Contrast IMPRESSION: Normal CTA chest examination, without a demonstrated pulmonary embolism or arterial dissection. Electronically Signed: Rudy Corado MD at 10:16 EDT ,
[2024-02-21 17:36] LABS: CREATININE FINGERSTICK < 1.0 mg/dL (0.55-1.02); EGFR FINGERSTICK > 60.0000 mL/min (>60)
== END | disposition home or self-care (01) ==
LOC: CT 16:52
PROVIDERS: PCP Family Medicine; Referring Provider Family Medicine; Visit Provider Family Medicine
DX: I26.99 Other pulmonary embolism without acute cor pulmonale (principal); R06.00 Dyspnea, unspecified
CPT/HCPCS: 71275; Q9967

== ENCOUNTER → 2024-06-28 | Outpatient (CLI) | payer OTHER, SELFPAY ==
--- NOTE | 2024-06-28 14:18 | US_ITS ---
STUDY: ULTRASOUND OF THE FEMALE PELVIS - COMPLETE REASON FOR EXAM: Female, 44 years old. menorrhagia LMP: 05/09/2024 TECHNIQUE: Transabdominal and Transvaginal TECHNICAL QUALITY: Adequate. COMPARISON: None. FINDINGS: The uterus is retroflexed and is in a midline position. The uterus measures 11.4 x 6.3 x 4.8 cm. Normal uterine cervix. The endometrium measures 23.9 mm in thickness, and is hyperechoic. There is no demonstrated endometrial mass. There is no demonstrated myometrial mass. I.U.D. - The patient does not have an I.U.D. nabothian cysts noted at the cervix The right ovary is visualized. The right ovary measures 4.3 x 3.4 x 3.9 cm. There is a simple 2.2 cm cyst.. There is normal arterial and normal venous vascularity. The left ovary is visualized. The left ovary measures 4.7 x 4.3 x 3.7 cm. There is a septated 4.2 cm cyst.. There is normal arterial and normal venous vascularity. There is no fluid in the cul-de-sac. The bladder sonographically normal US/Pelvic w/ Transvaginal IMPRESSION: The endometrium is abnormally thickened for age and there is also a not simple septated left ovarian cyst. 4-6 week follow-up ultrasound recommended to reevaluate both of these entities Simple right adnexal cyst, no specific follow-up needed No free fluid Electronically Signed: Alen Baldwin MD at 8:53 EST ,
[2024-06-28 15:20] LABS: Absolute Lymphocyte Count 2.86 X10^3/uL (0.83-4.51); Absolute Neutrophil Count 6.7 X10^3/uL (2.0-7.7); Basophil# 0.07 X10^3/uL; Basophil% 0.6 % (0-1); Eosinophil# 0.25 X10^3/uL; Eosinophils% 2.3 % (0-5); Hematocrit 32.5 % (37-47); Hemoglobin 9.9 g/dL (12.0-15.0); Lymphocyte # 2.86 X10^3/ul (0.83-4.51); Lymphocyte % 26.2 % (19-41); Mean Corp Hgb Conc 30.5 g/dL (32-36); Mean Corpuscular Volume 85.3 fL (81-99); Mean Platelet Vol. 8.5 fl (6.2-12.0); Monocyte# 0.99 X10^3/uL; Monocyte% 9.1 % (0-10); NRBC Flagged by Analyzer 0 % (0-5); Neutrophil % 61.3 % (47-70); Platelet Count 267 K/mm3 (150-450); RBC Distribution Width CV 13.2 % (11.6-14.6); Red Blood Count 3.81 M/mm3 (4.2-5.4); White Blood Count 10.9 K/mm3 (4.4-11.0)
== END | disposition home or self-care (01) ==
PROVIDERS: PCP Family Medicine; Referring Provider Nurse Practitioner Women's Health; Visit Provider Nurse Practitioner Women's Health
DX: N92.1 Excessive and frequent menstruation with irregular cycle (principal); Z13.29 Encounter for screening for other suspected endocrine disorder
CPT/HCPCS: 36415; 76830; 76856; 84443; 85025

== ENCOUNTER → 2024-07-14 | Outpatient (CLI) | payer OTHER, SELFPAY ==
--- NOTE | 2024-07-14 16:26 | US_ITS ---
EXAM: US PELVIS TRANSABDOMINAL AND TRANSVAGINAL, COMPLETE CLINICAL INDICATION: recheck cysts TECHNIQUE: Transabdominal and transvaginal pelvic ultrasound was performed with grayscale and color Doppler imaging. Transvaginal imaging was used for better evaluation of the endometrium and adnexa. COMPARISON: June 28, 2024. June 15, 2023. FINDINGS: UTERUS/CERVIX: Unremarkable. 12.7 cm x 5.5 cm x 8.9 cm. Multiple small nabothian cervical cysts. Anteverted. There is no uterine mass. Echogenic endometrial zone may be up to 4.3 cm thick on transabdominal exam and 3.6 cm thickness on transvaginal exam, it was previously 1.5-2.4 cm. It is not well seen but appears thickened. RIGHT OVARY: Not seen. LEFT OVARY: 3.3 cm x 2.5 cm x 2.9 cm. Non-enlarged, normal echogenicity. Blood flow is present in the left ovary. Previously seen 4.2 cm maximum diameter left ovarian cystic structure has resolved. There is up to 1 cm dominant follicle, not measured. FREE FLUID: None. BLADDER: Only minimally distended, 5.1 cm x 4.5 cm x 4.6 cm, calculated volume of 55 cc. Wall is normal thickness for degree of distention. US/Pelvic w/ Transvaginal IMPRESSION: Resolution of previously seen 4.2 cm left ovarian cystic structure. Nonvisualized right ovary. Thickened uterine endometrium, 3.6-4.3 cm, it was previously 2.4 in June 2024 and only 1 cm June 15, 2023. Correlate with any dysfunctional uterine bleeding or pain. MRI pelvis could be considered if it is thought to be indicated. Electronically Signed: Nabila Vasquez MD at 22:33 EST ,
[2024-07-14 17:09] LABS: Absolute Lymphocyte Count 2.23 X10^3/uL (0.83-4.51); Basophil# 0.05 X10^3/uL; Basophil% 0.6 % (0-1); Eosinophil# 0.22 X10^3/uL; Eosinophils% 2.7 % (0-5); Hematocrit 35.8 % (37-47); Lymphocyte # 2.23 X10^3/ul (0.83-4.51); Lymphocyte % 27.5 % (19-41); Mean Corp Hgb Conc 30.7 g/dL (32-36); Mean Corpuscular Hgb 26.6 pg (27.0-32.0); Mean Corpuscular Volume 86.5 fL (81-99); Mean Platelet Vol. 9.1 fl (6.2-12.0); Monocyte# 0.54 X10^3/uL; Monocyte% 6.7 % (0-10); NRBC Flagged by Analyzer 0 % (0-5); Neutrophil # 5.04 X10^3/uL (2.7-7.7); Platelet Count 418 K/mm3 (150-450); RBC Distribution Width CV 14.8 % (11.6-14.6); RBC Distribution Width SD 46.5 fl (35.1-43.9); Red Blood Count 4.14 M/mm3 (4.2-5.4); White Blood Count 8.1 K/mm3 (4.4-11.0)
[2024-07-14 17:43] LABS: Ferritin 9 ng/mL (8-252); Iron 101 ug/dL (50-170)
== END | disposition home or self-care (01) ==
PROVIDERS: PCP Family Medicine; Referring Provider Nurse Practitioner Women's Health; Visit Provider Nurse Practitioner Women's Health
DX: N92.0 Excessive and frequent menstruation with regular cycle (principal); D50.9 Iron deficiency anemia, unspecified; N83.201 Unspecified ovarian cyst, right side; N83.202 Unspecified ovarian cyst, left side
CPT/HCPCS: 36415; 76830; 76856; 82728; 83540; 85025

== ENCOUNTER → 2024-07-19 | Outpatient (CLI) | payer OTHER, SELFPAY ==
--- NOTE | 2024-07-19 | EMB_PTH ---
PATIENT: SHRUTI BATRES [facility] U#:[id number] AGE/SX: 44/F ROOM: RE07/19/[address]: HUDSON Bearden : 1980 BED: DIS: 07/19/2024 SPEC #: [id number] RECD: 07/19/24 12:06 STATUS: MARCIAL NALINI #: [id number] ERIKA: 07/19/24 00:[address]: Constance Rivas NP DEPT: SURGICAL PATHOLOGY RECD BY: Evonne Solano ENTERED: 07/19/24 13:51 SP TYPE: ENDOM BX/C LA DR: Dr. Radha Ramon DO Tissues: Endometrium, NOS Procedures: Surgery Specimen Level IV HEADER OPERATION: Endometrial biopsy PRE-OP DIAGNOSIS: Abnormal uterine bleeding, thickened endometrium TISSUE SUBMITTED: Endometrial tissue MICROSCOPIC DIAGNOSIS Endometrial biopsy: Fragments of benign endometrial tissue with extensive exogenous hormone effect and breakdown. Fragments of benign endocervical mucosa. SJ.mr 07/20/2024 MICROSCOPIC DESCRIPTION Slides are reviewed. GROSS DESCRIPTION Received is one container labeled with the patient's name and not further designated. The specimen consists of multiple irregular fragments of hemorrhagic soft tissue mixed with mucoid tissue that in aggregate measure 3.0 x 2.5 x 0.3 cm. The specimen is totally submitted in one cassette. 07/19/2024 TC:5 CPT:51046
== END | disposition home or self-care (01) ==
LOC: LABSPEC 11:52
PROVIDERS: PCP Family Medicine; Referring Provider Nurse Practitioner Women's Health; Visit Provider Nurse Practitioner Women's Health
DX: N93.9 Abnormal uterine and vaginal bleeding, unspecified (principal)
CPT/HCPCS: 88305

== ENCOUNTER → 2024-08-16 | Outpatient (CLI) | payer BC, SELFPAY ==
[2024-08-16 18:11] LABS: Absolute Lymphocyte Count 2.31 X10^3/uL (0.83-4.51); Basophil# 0.08 X10^3/uL; Basophil% 0.8 % (0-1); Eosinophil# 0.24 X10^3/uL; Eosinophils% 2.3 % (0-5); Hematocrit 34.6 % (37-47); Hemoglobin 11.3 g/dL (12.0-15.0); Lymphocyte # 2.31 X10^3/ul (0.83-4.51); Lymphocyte % 22.5 % (19-41); Mean Corp Hgb Conc 32.7 g/dL (32-36); Mean Corpuscular Hgb 26.9 pg (27.0-32.0); Mean Corpuscular Volume 82.4 fL (81-99); Monocyte# 0.56 X10^3/uL; Monocyte% 5.5 % (0-10); NRBC Flagged by Analyzer 0 % (0-5); Neutrophil # 7.02 X10^3/uL (2.7-7.7); Neutrophil % 68.4 % (47-70); Platelet Count 340 K/mm3 (150-450); RBC Distribution Width CV 14.9 % (11.6-14.6); RBC Distribution Width SD 44.4 fl (35.1-43.9); White Blood Count 10.3 K/mm3 (4.4-11.0)
[2024-08-16 18:35] LABS: Iron 24 ug/dL (50-170)
[2024-08-22 16:08] LABS: Antithrombin 3 Function 109 % (75-135); Protein C, Functional 124 % (73-180); Protein S, Funtional 75 % (63-140)
== END | disposition home or self-care (01) ==
PROVIDERS: PCP Family Medicine; Referring Provider Family Medicine; Visit Provider Family Medicine
DX: I82.91 Chronic embolism and thrombosis of unspecified vein (principal); Z86.718 Personal history of other venous thrombosis and embolism; D64.9 Anemia, unspecified; E61.1 Iron deficiency; N92.0 Excessive and frequent menstruation with regular cycle
CPT/HCPCS: 36415; 81240; 81241; 83540; 85025; 85300; 85303; 85306

== ENCOUNTER → 2024-08-30 | Outpatient (CLI) | payer BC, SELFPAY ==
--- NOTE | 2024-08-30 12:27 | NEURO_ITS ---
NCS and/or EMG Patient Report Ordering Doctor: Radha Ramon DATE OF SERVICE: 08/30/24 Peg presents with complaints of numbness in the right forearm and hand. Electrodiagnostic findings: Right median motor nerve demonstrates mildly prolonged distal latency with normal amplitude and conduction velocity. Right ulnar motor response is within normal limits, including conduction across the elbow. Prolonged right median sensory latency at the wrist. Absent right median sensory palmar response. Normal right median and right ulnar F?waves. Needle EMG testing was performed the right upper limb. All muscles tested showed no evidence of denervation with normal motor unit potentials. Electrodiagnostic impression: This is an abnormal study in the right upper limb 1. Electrodiagnostic findings suggestive of right-sided median mononeuropathy. This is consistent with a mild to moderate right carpal tunnel syndrome Multi Select Codes Neurology Neurology Interp Codes: 17111-32 Musc test done w/n test comp (interp) and 959 10-26 Nrv cndj test 7-8 studies (interp)
== END | disposition home or self-care (01) ==
PROVIDERS: PCP Family Medicine; Referring Provider Family Medicine; Visit Provider Family Medicine
DX: G56.21 Lesion of ulnar nerve, right upper limb (principal)
CPT/HCPCS: 95886; 95910

== ENCOUNTER 2024-09-26 11:09 | Day surgery (SDC) | payer BC, SELFPAY ==
--- NOTE | 2024-09-12 17:48 | PAT.ANE_ITS ---
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 When Was Last Pacemaker Check QUESTION #4 FULL TEXT: You/Your Family Experience fever (hyperthermia) with Anesthesia Last Oral Intake Last Oral intake: Last Oral Intake NPO since Meds taken in AM with sips of water? Meds patient instructed to take am of surgery PONV PONV - aircraft load controller: PONV - aircraft load controller Female Yes 09/12/24 10:46 HX of Motion Sickness No 09/12/24 10:46 HX of N/V After Surgery No 09/12/24 10:46 Non-Smoker Yes 09/12/24 10:46 Duration of Surgery greater No 09/12/24 10:46 than 60 minutes Number of Risk Factors 2 09/12/24 10:46 PONV Score Moderate Risk 09/12/24 10:46 Height & Weight Height & Weight: Anesthesia: Height & Weight Height 5 ft 10 in 09/05/24 09:42 Respiratory Assessment Respiratory Assessment - aircraft load controller: Respiratory Tract Infection Hx - aircraft load controller Hx Respiratory Tract Infection No 09/12/24 10:46 STOP Sleep Apnea STOP Sleep Apnea - aircraft load controller: STOP Sleep Apnea - aircraft load controller Hx Hypertension Yes: CONTROLLED WITH MED 09/12/24 10:46 Hx Sleep Apnea No 09/12/24 10:46 CPAP BIPAP Do you snore loudly (louder No 09/12/24 10:46 than talking or can be heard Do you often feel tired/ No 09/12/24 10:46 fatigued/ sleepy during daytime? Has anyone observed you stop No 09/12/24 10:46 breathing during sleep? STOP Results Negative 09/12/24 10:46 QUESTION #5 FULL TEXT : Do you snore loudly (louder than talking or can be heard through closed doors)? 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 Specify any problems Hx of Preganancy in last 3 N/A 09/12/24 10:46 Months Nurse Filling Out Transfusion NBUCHER 09/12/24 10:46 & Questions: Date: 09/12/24 09/12/24 10:46 Time: 10:47 09/12/24 10:46 Patient unable to answer at this time (ie. confused, unrespo /Reproduction History /Reproductive History - aircraft load controller: /Reproductive Hx- aircraft load controller Hx Now No 09/12/24 10:46 Gestational Age (in weeks): EDC: Hx Hx Para Hx Section SAB No 09/12/24 10:46 [facility] Medical History MRSA infection Wears glasses Depression Anxiety Anemia DVT (deep venous thrombosis) Restless legs Non-smoker Leg cramps History of edema History of echocardiogram Pulmonary embolism Factor 5 Leiden mutation, heterozygous Rheumatoid arthritis Anxiety and depression Home Medications ?Medication ?Instructions ?Recorded ?Last Taken ?Type bupropion HCl 300 mg 24 hr tablet, 300 mg PO QAM 05/31 Unknown History extended release (Wellbutrin XL) escitalopram oxalate 20 mg tablet 20 mg PO DAILY 05/31 Unknown History (Lexapro) aspirin 325 mg tablet 325 mg PO QDAY 09/05/24 Unkn own History losartan 50 mg tablet 50 mg PO QDAY 09/05/24 Unkno wn History gabapentin 100 mg capsule 100 mg PO QHS 09/12/24 Unkno wn History Allergy/AdvReac Type Severity Reaction Status Date / Time cephalexin monohydrate (From Allergy Other Verified 09/12/24 10:43 Keflex) metronidazole (From Flagyl) Allergy Other Verified 09/12/24 10:43 Sulfa (Sulfonamide Allergy Anaphylaxis Verified 09/12/24 10:43 Antibiotics) sulfamethoxazole (From Allergy Upset Verified 09/12/24 10:43 Bactrim) Stomach trimethoprim (From Bactrim) Allergy Upset Verified 09/12/24 10:43 Stomach Family History Grandfather Cancer Lung- Maternal Grandmother Cancer bladder- paternal Grandmother Cancer Lung- Surgical History (Updated 09/12/24 @ 10:52 by Radha Bangura) History of tubal ligation H/O foot operation S/P S/P cholecystectomy Social History Smoking Status: Never smoker Audit: Pertinent Findings Pertinent Findings EKG Perinent findings: 06/14/2018. Sinus tachycardia 110 bpm. Echo (EF%) pertinent findings: January 26, 2024. Ejection fraction 60%. PA systolic pressure is 30 mmHg. No aortic stenosis noted. Recommendation Anesthesia Recommendation Anesthesia recommendation: OPTIMIZED for anesthesia
--- NOTE | 2024-09-25 17:30 | HP.PCM_ITS ---
History and Physical Date of Admission: 09/26/24 Intake Vital Signs 09/05/2508:42 09/25/2508:09 09/25/2508:12 Height 5 ft 10 in 5 ft 10 in 5 ft 10 in Weight: 323 lb 321 lb BMI 46.3 46.0 BP 136/87 H 146/92 H Intake Visit Reasons: D&C Agency Sales Representative Required: No Is patient in pain?: No Allergies cephalexin monohydrate (From Keflex) Allergy (Verified 09/25/24 09:13) Othermetronidazole (From Flagyl) Allergy (Verified 09/25/24 09:13) OtherSulfa (Sulfonamide Antibiotics) Allergy (Verified 09/25/24 09:13) Anaphylaxissulfamethoxazole (From Bactrim) Allergy (Verified 09/25/24 09:13) Upset Stomachtrimethoprim (From Bactrim) Allergy (Verified 09/25/24 09:13) Upset Stomach Medications ?Medication ?Instructions ?Recorded ?Confirmed ?Type bupropion HCl 300 mg 24 hr tablet, 300 mg PO QAM 05/31/23 09/25/24 History extended release (Wellbutrin XL) escitalopram oxalate 20 mg tablet 20 mg PO DAILY 05/31/23 09/25/24 History (Lexapro) aspirin 325 mg tablet 325 mg PO QDAY 09/05/24 09/25/24 History losartan 50 mg tablet 50 mg PO QDAY 09/05/24 09/25/24 History gabapentin 100 mg capsule 100 mg PO QHS 09/12/24 09/25/24 History Is last menstrual period known: Yes Last Menstrual Period: 08/22/24 (lasted 9 days) Post menopausal: No Patient : No : No PFSH Medical History MRSA infection Wears glasses Depression Anxiety Anemia DVT (deep venous thrombosis) Restless legs Non-smoker Leg cramps History of edema History of echocardiogram Pulmonary embolism Factor 5 Leiden mutation, heterozygous Rheumatoid arthritis Anxiety and depression Surgical History History of tubal ligation H/O foot operation S/P S/P cholecystectomy Family History Grandfather Cancer Lung- MaternalGrandmother Cancer bladder- paternalGrandmother Cancer Lung- Social History Smoking Status: Never smoker HPI D&C Details: SHRUTI BATRES is a 44 year old who presents for Female Reproductive History Last Menstrual Period: 08/22/24 (lasted 9 days) Menopausal Symptoms: No night sweats History 2 Elective abortions Hx Para 2 Spontaneous abortions Hx # Term Pregnancies Ectopic pregnancies Hx # Pregnancies Multiple births # of living children 2 Past Pregnancies Del. Date Name GA/Weeks Outcome Route Bth Weight Gen Labor Lgth Anesthes ia Del Locatn Provider FOB Unknown Mahesh 2010 Unknown Brenton 2012 ROS Const Constitutional: Denies fatigue, night sweats, weight gain or weight loss ENT ENT: Reports system reviewed and no additional complaints, except as documented Cardio Card: Denies chest pain Resp Resp: Denies cough or dyspnea GI GI: Reports as per HPI; Denies abdominal pain, constipation, nausea or vomiting : Denies nipple discharge, urinary frequency, urinary incontinence, urinary hesitancy, urinary urgency, vaginal discharge, vaginal dryness, vaginal odor or vaginal pruritus Musc Musc: Denies arthralgias, back pain or muscle weakness Skin Skin/Breast: Denies alopecia, change in hair, dry skin, breast mass, breast pain, breast skin changes or nipple discharge Neuro Neuro: Reports system reviewed and no additional complaints, except as documented Psych Psych: Reports system reviewed and no additional complaints, except as documented Endo Endo: Denies cold intolerance, excessive sweating, heat intolerance or polydipsia Werner/Lymph Hematologic/Lymphatic: Denies easy bleeding, Denies easy bruising and Denies lymphadenopathy Exam Const General: cooperative, healthy appearing, comfortable, no acute distress and well developed Orientation: alert [facility] Head: normal to inspection and normocephalic Ears: hearing grossly normal bilaterally and external ears normal Nose: external nose normal and nares normal Face and sinus: normal facial exam Neck Neck: normal visual inspection and no lymphadenopathy Thyroid: thyroid normal Chest Chest palpation & inspection: normal inspection of the chest Resp Effort & Inspection: normal respiratory effort Auscultation: clear to auscultation bilaterally Cardio Rate: regular rate Rhythm: regular rhythm Heart Sounds: S1 normal and S2 normal GI Inspection: normal to inspection and non-distended Palpation: soft and no hepatosplenomegaly Musc Other: gross motor intact no deficits, full bilateral strength Skin General: no rashes or lesions noted Neuro General: patient alert, patient awake, moves all extremities and no focal motor deficits Motor: muscle tone normal throughout Extrem General: normal to inspection and no pedal edema Psych Appearance: grossly normal Mental Status: mental status grossly normal Affect: normal affect Speech and Movement: speech and movement normal Coding Level of Care Code No Charge Diagnoses Menorrhagia with irregular cycle N92.1 Thickened endometrium R93.89 Cervical mass N88.8 Factor 5 Leiden mutation, heterozygous D68.51 Assessment and Plan Assessment and Plan (1) Menorrhagia with irregular cycle: Status: Acute Comment: nl EMB, enlarged uterus on US. cervical polyp. plan d and c hysteroscopy symphion possible nereida (2) Thickened endometrium: Status: Acute Comment: Uterus 11cm lining 23mm (3) Cervical mass: Status: Acute Comment: polyp vs fibroid at os. Difficult exam with obesity and friable. plan d and c hysteroscopy polypectomy symphion possible nereida ablation (4) Factor 5 Leiden mutation, heterozygous: Status: Acute Comment: h/o PE, possible apl positive also. plan preop lovenox and 1 week postop Plan d and c hysteroscopy polypectomy symphion possible nereida ablation After discussing the patient's diagnosis and treatment plan options, patient wishes to proceed with surgical management. I have discussed with the patient the risks, benefits, and alternatives of the procedure which include but are not limited to risks of anesthesia, bleeding, infection, possible damage to bowel, bladder, or surrounding vasculature which could lead to additional surgery to evaluate any complications. Patient agrees to procedure and wishes to proceed. ACOG/uptodate references given for additional information regarding procedure.
[2024-09-26] VITALS (9 sets, daily range): BP systolic 117–153; BP diastolic 67–89; PULSE 65–73; RESP 16; TEMP 36.1–36.8; O2SAT 96–99; BMI 45.8
[2024-09-26] MEDS: Enoxaparin 40 MG/0.4 ML Syringe SC (11:35)
--- NOTE | 2024-09-26 12:02 | PCM.PRE.AN2 ---
ASA Classification* ASA Classification ASA Classification: 3 Assessment & Plan Anesthesia* Anesthesia Assessment Anesthesia Assessment: Discussed sedation and/or anesthesia options, risks, benefits, and alternatives with patient/parents/legal guardian/POA. Questions invited. The patient/parents/legal guardian/POA seems to understand and agrees to proceed with anesthesia plan. Reviewed the physical assessment, medical history, allergy history and patient home medications list prior to surgery/procedure/anesthetic and documented any changes. Performed airway and anesthesia risk assessments. Anesthesia Type Anesthesia Type: MAC History Source History Obtained from:: Patient and Chart Anesthesia Focused Assessment* Temperature: 98.2 F Pulse Rate: 73 Blood Pressure: 153/83 Respiratory Rate: 16 Pulse Ox: 98 Oxygen Delivery Method: Room Air Airway Assessment Mouth opens: >3 cm Mallampati Score: II Teeth Condition: Intact Neck Range of motion (ROM): Full ROM Focused Labs Anesthesia Preop lab: CBC WBC 10.3 K/mm3 (4.4-11.0) 08/16/24 16:52 08/16/24 RBC 4.20 M/mm3 (4.2-5.4) 08/16/24 16:52 08/16/24 Hgb 11.3 g/dL (12.0-15.0) L 08/16/24 16:52 08/16/24 Hct 34.6 % (37-47) L 08/16/24 16:52 08/16/24 Plt Count 340 K/mm3 (150-450) 08/16/24 16:52 08/16/24 CHEMISTRY Potassium 3.4 mmol/L (3.5-5.1) L 11/22/23 16:37 11/22/23 Sodium 139 mmol/L (136-145) 11/22/23 16:37 11/22/23 Magnesium 2.2 mg/dL (1.6-2.6) 07/29/20 13:29 07/29/20 Phosphorus 3.1 mg/dL (2.5-4.9) 12/27/12 10:41 12/27/12 BUN 9 mg/dL (7-18) 11/22/23 16:37 11/22/23 Creatinine 0.78 mg/dL (0.55-1.02) 11/22/23 16:37 11/22/23 Glucose 83 mg/dL (74-106) 11/22/23 16:37 11/22/23 TSH 1.980 uIU/mL (0.358-3.740) 06/28/24 15:09 06/28/24 COAG PT 12.9 SECONDS (11.7-14.9) 06/14/18 22:20 06/14/18 Tst Clinic Negative 07/19/24 11:08 07/19/24 Pre-Assessment Diagnosis/Proposed Procedure Planned Operative Procedure(s): Hysteroscopy,D&C Symphion, Polypectomy, possible Chapis Ablation Anesthesia History 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 When Was Last Pacemaker Check QUESTION #4 FULL TEXT: You/Your Family Experience fever (hyperthermia) with Anesthesia Last Oral Intake Last Oral intake: Last Oral Intake NPO since 19:00 09/26/24 11:30 Meds taken in AM with sips of Yes 09/26/24 11:30 water? Meds patient instructed to take am of surgery PONV PONV - regional account director: PONV - regional account director Female Yes 09/12/24 10:46 HX of Motion Sickness No 09/12/24 10:46 HX of N/V After Surgery No 09/12/24 10:46 Non-Smoker Yes 09/12/24 10:46 Duration of Surgery greater No 09/12/24 10:46 than 60 minutes Number of Risk Factors 2 09/12/24 10:46 PONV Score Moderate Risk 09/12/24 10:46 Height & Weight Height & Weight: Anesthesia: Height & Weight Height 5 ft 10 in 09/26/24 11:30 Weight: 145.1 kg 09/26/24 11:30 Body Mass Index (BMI) 45.8 09/26/24 11:30 Respiratory Assessment Respiratory Assessment - regional account director: Respiratory Tract Infection Hx - regional account director Hx Respiratory Tract Infection No 09/12/24 10:46 STOP Sleep Apnea STOP Sleep Apnea - regional account director: STOP Sleep Apnea - regional account director Hx Hypertension Yes: CONTROLLED WITH MED 09/12/24 10:46 Hx Sleep Apnea No 09/12/24 10:46 CPAP BIPAP Do you snore loudly (louder No 09/12/24 10:46 than talking or can be heard Do you often feel tired/ No 09/12/24 10:46 fatigued/ sleepy during daytime? Has anyone observed you stop No 09/12/24 10:46 breathing during sleep? STOP Results Negative 09/12/24 10:46 QUESTION #5 FULL TEXT : Do you snore loudly (louder than talking or can be heard through closed doors)? 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 Specify any problems Hx of Preganancy in last 3 N/A 09/12/24 10:46 Months Nurse Filling Out Transfusion NBUCHER 09/12/24 10:46 & Questions: Date: 09/12/24 09/12/24 10:46 Time: 10:47 09/12/24 10:46 Patient unable to answer at this time (ie. confused, unrespo /Reproduction History /Reproductive History - regional account director: /Reproductive Hx- regional account director Hx Now No 09/12/24 10:46 Gestational Age (in weeks): EDC: Hx Hx Para Hx Section SAB No 09/25/24 09:12 PFSH Medical History MRSA infection Wears glasses Depression Anxiety Anemia DVT (deep venous thrombosis) Restless legs Non-smoker Leg cramps History of edema History of echocardiogram Pulmonary embolism Factor 5 Leiden mutation, heterozygous Rheumatoid arthritis Anxiety and depression Home Medications ?Medication ?Instructions ?Recorded ?Last Taken ?Type bupropion HCl 300 mg 24 hr tablet, 300 mg PO QAM 05/31/23 09/25/24 History extended release (Wellbutrin XL) escitalopram oxalate 20 mg tablet 20 mg PO DAILY 05/31/23 09/25/24 History (Lexapro) aspirin 325 mg tablet 325 mg PO QDAY 09/05/24 09/23/24 History losartan 50 mg tablet 50 mg PO QDAY 09/05/24 09/25/24 History gabapentin 100 mg capsule 100 mg PO QHS 09/12/24 09/25/24 History Allergy/AdvReac Type Severity Reaction Status Date / Time cephalexin monohydrate (From Allergy Other Verified 09/25/24 09:13 Keflex) metronidazole (From Flagyl) Allergy Other Verified 09/25/24 09:13 Sulfa (Sulfonamide Allergy Anaphylaxis Verified 09/26/24 11:30 Antibiotics) sulfamethoxazole (From Allergy Upset Verified 09/26/24 11:30 Bactrim) Stomach trimethoprim (From Bactrim) Allergy Upset Verified 09/26/24 11:30 Stomach Family History Grandfather Cancer Lung- Maternal Grandmother Cancer bladder- paternal Grandmother Cancer Lung- Surgical History History of tubal ligation H/O foot operation S/P S/P cholecystectomy Social History Smoking Status: Never smoker Review of Systems (Anesthesia) ROS Narrative System reviewed and no additional complaints, except as documented.
--- NOTE | 2024-09-26 12:33 | PCM.OPRPT ---
Problems Associated Problem List Diagnoses (1) Cervical mass: (2) Thickened endometrium: (3) Menorrhagia with irregular cycle: Multi Select Codes Urinary/Genital Urinary/Genital CPT Codes: 60848 Biopsy of cervix and 36731 Chapis/Novasure Operative Report (Standard) Operative Information Date of Procedure: 09/26/24 Pre-Operative Diagnosis: see problem list Post-Operative Diagnosis: same Surgery/Procedure Performed: D&C hysteroscopy and Chapis ablation removal of cervical lesion sap bi developer: No Type of Anesthesia: Local and MAC RN Documented Start/Stop Times: Operation Date: 09/26/24 12:50 Case Time Into Pre-Op 09/26/24 11:13 Out of Pre-Op 09/26/24 12:57 Anesthesia Start 09/26/24 13:01 Into Room 09/26/24 13:01 Procedure Start 09/26/24 13:26 Procedure End 09/26/24 13:50 Anesthesia End 09/26/24 13:59 Out of Room 09/26/24 13:59 Into Recovery 09/26/24 14:01 Out of Recovery 09/26/24 14:31 Into Phase II Recovery 09/26/24 14:32 Out of Phase II 09/26/24 15:19 Procedure Start Time: 13:26 Procedure Stop Time: 13:50 Select all DRAINS/GRAFTS/IMPLANTS that apply: None Estimated Blood Loss: 505 Specimen collected: Yes Description of specimen(s) removed: [facility] cervix Description of surgery: Patient was taken to the operating room and placed under IV anesthesia was prepped and draped in normal sterile fashion in the dorsolithotomy position. Paracervical block was placed and cervix was dilated to allow passage of a 5 mm hysteroscope. Uterine lining was noted to be within normal limits. Curettage was performed and tissue sent to pathology for analysis. Decision was made to perform the Chapis ablation since no unreality's were seen to the lining. Uterine cavity length was 6.5 cm. Chapis ablation was performed without complication for the full 2-minute treatment cycle. Attention was then paid to the posterior lip of the cervix where lesion was noted that was friable and was unable to be told if it was a polyp or just overgrowth of ectropion. The lesion was removed using a loop electrode and the base cauterized for excellent hemostasis. Tissue sent to pathology for analysis. Patient was awoken and taken recovery in stable condition Surgical Findings: Posterior lip cervical lesion thickened endometrium Complications Complications: No
--- NOTE | 2024-09-26 12:33 | PCM.DC ---
Discharge Instructions Diet Discharge Diet: No restrictions DC O2, CPAP, BIPAP needs Home O2 Discharge instructions: No Dressing / Incision Discharge Activity: Return to Normal Activity, May Shower and May Take a Tub Bath (after 1 week) May resume sexual activity in: 1-2 weeks Weight Bearing Status: Weight bearing as tolerated Lifting Restrictions: none Dressing / Incision Call your doctor if you observe: Fever of 101 or Higher, Using more than 1 pad per hour, Shortness of breath and Uncontrolled pain Follow Up Care Please Follow Up With: Shawna Barrios MD When: Call [phone] to schedule appointment. Test Results: Test results from this visit will be discussed in further detail at your follow-up appointment, if applicable. Discharge Plan Admission Attending Provider: Shawna Barrios Primary Care Provider: Radha Ramon Instructions Print Language: Chinese Discharge Orders/Prescriptions Prescriptions: New enoxaparin [Lovenox] 40 mg/0.4 mL syringe 40 mg SQ DAILY 14 Days Qty: 20 1RF No Action bupropion HCl [Wellbutrin XL] 300 mg tablet extended release 24 hr 300 mg PO QAM escitalopram oxalate [Lexapro] 20 mg tablet 20 mg PO DAILY losartan 50 mg tablet 50 mg PO QDAY aspirin 325 mg tablet 325 mg PO QDAY gabapentin 100 mg capsule 100 mg PO QHS Patient Comments: [NO ORIGINAL SIG] Referrals / Follow Up: Radha Ramon DO [Primary Care Provider] - Disposition Disposition (needs filled in before D/C Order can be placed): Home, Self Care
--- NOTE | 2024-09-26 12:50 | EMB_PTH ---
PATIENT: SHRUTI BATRES LOC: [facility] [place] U#:[id number] AGE/SX: 44/F ROOM: RE09/26/[address]: Dr. Shawna Barrios MD : 1980 BED: DIS: 09/26/2024 SPEC #: [id number] RECD: 09/26/24 14:40 STATUS: MARCIAL RESohail #: [id number] ERIKA: 09/26/24 12:[address]: Shawna Barrios DEPT: SURGICAL PATHOLOGY RECD BY: Evonne Solano ENTERED: 09/27/24 07:53 SP TYPE: ENDOM BX/C OTHR DR: Dr. Radha Ramon DO Tissues: A - Endometrium, NOS B - Uterine cervix, NOS Procedures: Surgery Specimen Level IV HEADER OPERATION: Hysteroscopy, D&C, polypectomy, Chapis ablation PRE-OP DIAGNOSIS: Menorrhagia with irregular cycle, thickened endometrium, cervical mass, factor 5 Leiden mutation, heterozygous TISSUE SUBMITTED: A- Endometrial curettings, B- Cervical lesion MICROSCOPIC DIAGNOSIS A. Endometrial curettings: Proliferative endometrium with focal area of mildly disordered proliferative endometrium. Fragments of benign endocervical mucosa. B. Cervical lesion, polypectomy: Inflamed benign mix ecto- and endocervical polyp. YFN. 09/28/2024 MICROSCOPIC DESCRIPTION Slides are reviewed. GROSS DESCRIPTION A. Received in fixative is one container labeled with the patient's name and designated Endometrial curettings. The specimen consists of multiple irregular fragments of hemorrhagic soft tissue that in aggregate measure 5 x 3 x 0.3 cm. The specimen is totally submitted in two cassettes. B. Received in fixative is one container labeled with the patient's name and designated Cervical lesion. The specimen consists of a ureña-pink polyp measuring 1.5 x 1.2 x 0.8cm. The specimen is bisected and submitted entirely in one cassette. YFN. 09/27/2024 TC:5 CPT:[id number]
[2024-09-26] MEDS: Lidocaine 1% (20 ml mdv) 20 ML Vial (13:30)
[2024-09-26] MEDS: FERRIC SUBSULFATE 8 GM SOLN (13:50)
--- NOTE | 2024-09-26 14:04 | PCM.POST.ANE ---
Anesthesia: Postop Eval I Current Vital Signs Temperature: 98 F Pulse Rate: 69 Blood Pressure: 117/75 Respiratory Rate: 16 Pulse Ox: 98 Oxygen Delivery Method: Room Air Assessment Airway patent: Yes Spontaneous unlabored respirations: Yes Mental status: Awake and Calm nausea: No Vomiting: No Anesthesia Complication: No Fluid Hydration Crystalloid volume administer (ml): 10 Total IV fluid infused: 10 Progress Note Anesthesia document: Postop Eval 1 completed: Yes
[2024-09-26] MEDS: HYDROcodone Bitartrate/Apap 5/325 Tablet PO (14:51)
--- NOTE | 2024-09-26 18:39 | POSTOPAN2_ITS ---
Anesthesia Postop Eval I Sum Postop Eval Completion status Anesthesia document: Postop Eval 1 completed: Yes Anesthesia Postop Eval I Summary Anesthesia Postop Eval I Summary: Anesthesia Postop Eval I: Assessment Summary Airway patent Yes 09/26/24 14:05 MARBLE MACHINE OPERATOR.[email or web address] Spontaneous unlabored Yes 09/26/24 14:05 MARBLE MACHINE OPERATOR.GDOTT respirations Mental status Awake,Calm 09/26/24 14:05 MARBLE MACHINE OPERATOR.GDOTT nausea No 09/26/24 14:05 MARBLE MACHINE OPERATOR.GDOTT Vomiting No 09/26/24 14:05 MARBLE MACHINE OPERATOR.GDOTT Anesthesia Postop Eval I: Fluid Summary Crystalloid volume administer 10 09/26/24 14:05 MARBLE MACHINE OPERATOR.GDOTT (ml) Colloids volume administered ( ml) Blood Product volume administered (ml) Total IV fluid infused 10 09/26/24 14:05 MARBLE MACHINE OPERATOR.GDOTT Anesthesia Postop Eval I: Summary Notes Anesthesia Complication No 09/26/24 14:05 MARBLE MACHINE OPERATOR.GDOTT Anesthesia Complication Comment: Post-operative progress note Anesthesia: Postop Eval II Evaluation Mental status: Awake and Calm Pain Level: 1 nausea: No Vomiting: No Complications Anesthesia Complication: No
--- NOTE | 2024-09-26 18:39 | PCM.POSTANE2 ---
Anesthesia Postop Eval I Sum Postop Eval Completion status Anesthesia document: Postop Eval 1 completed: Yes Anesthesia Postop Eval I Summary Anesthesia Postop Eval I Summary: Anesthesia Postop Eval I: Assessment Summary Airway patent Yes 09/26/24 14:05 DOUBLE HEAD MACHINE OPERATOR.[email or web address] Spontaneous unlabored Yes 09/26/24 14:05 DOUBLE HEAD MACHINE OPERATOR.GDOTT respirations Mental status Awake,Calm 09/26/24 14:05 DOUBLE HEAD MACHINE OPERATOR.GDOTT nausea No 09/26/24 14:05 DOUBLE HEAD MACHINE OPERATOR.GDOTT Vomiting No 09/26/24 14:05 DOUBLE HEAD MACHINE OPERATOR.GDOTT Anesthesia Postop Eval I: Fluid Summary Crystalloid volume administer 10 09/26/24 14:05 DOUBLE HEAD MACHINE OPERATOR.GDOTT (ml) Colloids volume administered ( ml) Blood Product volume administered (ml) Total IV fluid infused 10 09/26/24 14:05 DOUBLE HEAD MACHINE OPERATOR.GDOTT Anesthesia Postop Eval I: Summary Notes Anesthesia Complication No 09/26/24 14:05 DOUBLE HEAD MACHINE OPERATOR.GDOTT Anesthesia Complication Comment: Post-operative progress note Anesthesia: Postop Eval II Evaluation Mental status: Awake and Calm Pain Level: 1 nausea: No Vomiting: No Complications Anesthesia Complication: No
== END 2024-09-26 15:19 | disposition home or self-care (01) ==
LOC: SDC 11:10 → AC 11:10
PROVIDERS: PCP Family Medicine; Referring Provider Obstetrics & Gynecology; Visit Provider Obstetrics & Gynecology
PROC: 0UB98ZZ Excision of Uterus, Via Natural or Artificial Opening Endoscopic (ICD-10-PCS; CPT 58558; principal; 2024-09-26 12:35)
DX: N92.1 Excessive and frequent menstruation with irregular cycle (principal); Z68.42 Body mass index [BMI] 45.0-49.9, adult; N84.1 Polyp of cervix uteri; D68.51 Activated protein C resistance; E66.9 Obesity, unspecified; Z79.82 Long term (current) use of aspirin; Z79.899 Other long term (current) drug therapy
CPT/HCPCS: 58563; 57500; 00952; 36415; 86850; 86900; 86901; 88305; A4216; J2405

== ENCOUNTER → 2024-10-20 | Outpatient (CLI) | payer BC, SELFPAY ==
--- NOTE | 2024-10-20 09:45 | BI_ITS ---
PROCEDURE: SCRN MAMM (CAD)W/JO ANN BILAT REASON FOR EXAM: F, Age 44 y/o, presents for annual screening mammogram. No family history of breast cancer. TECHNIQUE: Bilateral screening digital breast tomosynthesis with 2D and 3D images. Computer aided detection. COMPARISON: 06/15/2023, 06/05/2022 FINDINGS: There are scattered areas of fibroglandular density. No suspicious masses, areas of developing architectural distortion, or suspicious calcifications. BI/SCRN MAMM (CAD)W/JO ANN BILAT IMPRESSION: There is no mammographic evidence of malignancy. BI-RADS 1: NEGATIVE. RECOMMEND ANNUAL MAMMOGRAPHIC SCREENING. Follow-up code: Routine Follow-up The patient will be notified of the results by letter.
== END | disposition home or self-care (01) ==
LOC: OPBI 09:41
PROVIDERS: PCP Family Medicine; Referring Provider Nurse Practitioner Women's Health; Visit Provider Nurse Practitioner Women's Health
DX: Z12.31 Encounter for screening mammogram for malignant neoplasm of breast (principal)
CPT/HCPCS: 77063; 77067

== ENCOUNTER → 2024-12-15 | Outpatient (CLI) | payer BC, SELFPAY ==
[2024-12-15 13:43] LABS: Absolute Lymphocyte Count 1.79 X10^3/uL (0.83-4.51); Basophil# 0.06 X10^3/uL; Basophil% 0.7 % (0-1); Eosinophils% 2.3 % (0-5); Hematocrit 39.5 % (37-47); Lymphocyte # 1.79 X10^3/ul (0.83-4.51); Lymphocyte % 20.7 % (19-41); Mean Corp Hgb Conc 32.9 g/dL (32-36); Mean Corpuscular Hgb 28.3 pg (27.0-32.0); Mean Corpuscular Volume 86.1 fL (81-99); Mean Platelet Vol. 9.7 fl (6.2-12.0); Monocyte% 6.9 % (0-10); NRBC Flagged by Analyzer 0 % (0-5); Neutrophil # 5.95 X10^3/uL (2.7-7.7); Neutrophil % 68.8 % (47-70); Platelet Count 333 K/mm3 (150-450); RBC Distribution Width CV 14.2 % (11.6-14.6); RBC Distribution Width SD 43.8 fl (35.1-43.9); Red Blood Count 4.59 M/mm3 (4.2-5.4); White Blood Count 8.7 K/mm3 (4.4-11.0)
[2024-12-15 14:31] LABS: ALB/GLOB Ratio 1.4 RATIO (0.9-2.4); AST(SGOT) 17 U/L (<=31); Alanine Aminotransfer ALT/SGPT 14 U/L (<=34); Albumin, Serum 4.2 g/dL (3.5-5.0); Alkaline Phosphatase 56 U/L (35-104); Anion Gap 10 (5-15); BUN 11 mg/dL (4-19); BUN/Creat Ratio 15.4 RATIO (10-20); CORTISOL AM 9.42 ug/dL (6.02-18.40); Calcium,Total 9.2 mg/dL (7.6-11.0); Carbon Dioxide 23.2 mmol/L (21.0-32.0); Chloride 106 mmol/L (98-108); Cholesterol 181 mg/dL (<=200); Creatinine, Serum 0.72 mg/dL (0.70-1.20); EST Glomerular Filtration Rate 106 (>60); Globulin 3.1 g/dL (2.2-4.2); Glucose 113 mg/dL (70-99); High Density Lipoprotein 48 mg/dL; Low Density Lipoprotein Calc. 112 mg/dL; Protein, Total 7.3 g/dL (5.9-8.4); Sodium Level 140 mmol/L (133-145); Total Bilirubin 0.35 mg/dL (0.00-1.30); Triglycerides 105 mg/dL; Very Low Density Lipoprotein 21 mg/dL (5-40); Vitamin B12 731 pg/mL (180-914); Vitamin D,25 Hydroxy 29.7 ng/mL (30-100); cholesterol:hdl ratio screen 3.76
[2024-12-15 14:56] LABS: Iron 50 ug/dL (50-170)
[2024-12-18 14:08] LABS: Anti-dsDNA Ab <1 IU/mL (0-9)
[2024-12-20 16:08] LABS: Anti-Cardiolipin Ab, IgA, Qn < 9 APL U/mL (0-11); Anti-Cardiolipin Ab, IgG, Qn < 9 GPL U/mL (0-14); Anti-Cardiolipin Ab, IgM, Qn < 9 MPL U/mL (0-12); Dilute Prothrombin Time (dPT) 36.5 sec (0.0-47.6); Dilute Russell Viper Venom 46.2 sec (0.0-47.0); Interpretation Comment: (.); Lyme IgG P18 Ab Absent (.); Lyme IgG P23 Ab Absent (.); Lyme IgG P28 Ab Absent (.); Lyme IgG P30 Ab Absent (.); Lyme IgG P39 Ab Absent (.); Lyme IgG P41 Ab Absent (.); Lyme IgG P45 Ab Absent (.); Lyme IgG P58 Ab Absent (.); Lyme IgG P66 Ab Absent (.); Lyme IgG P93 Ab Absent (.); Lyme IgG WB Interpretation Negative (Negative); Lyme IgM P23 Ab Present (.); Lyme IgM P39 Ab Present (.); Lyme IgM P41 Ab Absent (.); Lyme IgM WB Interpretation Positive (Negative); PTT-LA 31.4 sec (0.0-43.5); Thrombin Time 17.8 sec (0.0-23.0); dPT Confirm Ratio 1.14 Ratio (0.00-1.34)
== END | disposition home or self-care (01) ==
PROVIDERS: PCP Family Medicine; Referring Provider Family Medicine; Visit Provider Family Medicine
DX: E03.9 Hypothyroidism, unspecified (principal); I82.409 Acute embolism and thrombosis of unspecified deep veins of unspecified lower extremity; Z51.81 Encounter for therapeutic drug level monitoring; E55.9 Vitamin D deficiency, unspecified; D64.9 Anemia, unspecified; M25.50 Pain in unspecified joint
CPT/HCPCS: 36415; 80053; 80061; 82306; 82533; 82607; 83540; 84439; 84443; 84481; 85025; 86147; 86225; 86617

== ENCOUNTER → 2024-12-29 | Outpatient (CLI) | payer BC, SELFPAY ==
--- NOTE | 2024-12-29 08:54 | VDLE_ITS ---
Reason For Study Reason For Study: LLE Pain RIGHT LEFT FV is compressible, spontaneous, phasic, competent GSV is normal. and demonstrates normal augmentation. CFV is compressible, spontaneous, phasic, competent, Procedure and demonstrates normal augmentation. This is a venous duplex using B-mode, color flow and FV is compressible, spontaneous, phasic, competent spectral Doppler. and demonstrates normal augmentation. Exam performed in department. POP V is compressible, spontaneous, phasic, competent The exam was diagnostic. and demonstrates normal augmentation. A preliminary report was called and/or faxed to T/P Trunk is compressible. Tristen office. PTV is compressible. LT PerV is compressible. Nonvascularized anechoic structure noted in the area of the Lt Medial Gastrocnemius muscle measuring approximately 3.50cm x 1.07cm. VL/Venous Duplex US, Unilateral Interpretation Summary Deep veins of the left lower extremity are patent and compressible segmentally. There is no evidence of left lower extremity deep vein thrombosis. The left great saphenous vein appears patent an d compressible segmentally. Nonvascularized anechoic structure noted in the area of the left medial gastroc nemius muscle measuring approximately 3.50cm x 1.07cm. Ordering Physician: Radha Ramon Referring Physician: Radha Ramon Performed By: Phil Headley RVT
== END | disposition home or self-care (01) ==
LOC: CVS 08:52
PROVIDERS: PCP Family Medicine; Referring Provider Family Medicine; Visit Provider Family Medicine
DX: M79.605 Pain in left leg (principal)
CPT/HCPCS: 93971

== ENCOUNTER → 2025-02-20 | Outpatient (CLI) | payer BC, SELFPAY ==
[2025-02-20 12:09] LABS: CRP 6.55 mg/L (0.0-3.0)
== END | disposition home or self-care (01) ==
LOC: LAB 11:04
PROVIDERS: PCP Family Medicine; Referring Provider Family Medicine; Visit Provider Family Medicine
DX: M79.10 Myalgia, unspecified site (principal); M25.50 Pain in unspecified joint; R76.8 Other specified abnormal immunological findings in serum
CPT/HCPCS: 36415; 85652; 86140; 86617

== ENCOUNTER → 2025-07-18 | Outpatient (CLI) | payer BC, SELFPAY ==
--- NOTE | 2025-07-18 14:03 | NEURO ---
NCS and/or EMG Patient Report Ordering Doctor: Radha Quintanilla DATE OF SERVICE: 07/18/25 Peg presents with complaints of burning pain in the feet, worse on the right side. Electrodiagnostic findings: Peroneal motor nerve demonstrates normal distal latency, amplitude and conduction velocity bilaterally. Tibial motor response within normal limits bilaterally. Borderline prolonged right tibial F?wave. Sensory responses are within normal limits. Needle EMG testing was performed in the lower limbs. All muscles tested showed no evidence of denervation with normal motor unit action potentials. Electrodiagnostic impression: This is a normal electrodiagnostic study of the lower limbs. There is no electrodiagnostic evidence for peripheral neuropathy, including tarsal tunnel syndrome. Multi Select Codes Neurology Neurology Interp Codes: 54836-74 Musc test done w/n test comp (interp) (2) and 78797-51 Nrv cndj test 9-10 studies (interp)
== END | disposition home or self-care (01) ==
PROVIDERS: PCP Family Medicine; Referring Provider Podiatrist; Visit Provider Podiatrist
DX: M21.371 Foot drop, right foot (principal)
CPT/HCPCS: 95886; 95911